=== PATIENT | male | born 1955 | race Caucasian/White ===

== ENCOUNTER → 2018-07-12 08:02 | Outpatient (CLI) | payer OTHER, SELFPAY ==
[2016-02-03 11:51] VITALS: BMI 27.0
[2018-07-12 08:35] LABS: Bacteria 0 SEEN /hpf (None Seen); Mucous, Urine 0 SEEN /hpf (<or=2+); Red Blood Cells-Urine 0 SEEN /hpf (0-5); Squamous Epithelial Cells - UA 0 SEEN /hpf (0-5); White Blood Cells 0 SEEN /hpf (0-5)
[2018-07-12 09:03] LABS: Hematocrit 43.6 % (40-54); Hemoglobin 14.8 g/dl (13.0-16.5); Mean Corp Hgb Conc 33.9 g/gl (32-36); Mean Corpuscular Volume 91.2 fL (80-94); Mean Platelet Vol. 9.1 fl (6.2-12.0); Platelet Count 215 K/mm3 (150-450); RBC Distribution Width CV 13.2 % (11.6-14.6); RBC Distribution Width SD 43.9 fl (35.1-43.9); Red Blood Count 4.78 M/mm3 (4.6-6.2); White Blood Count 6.5 K/mm3 (4.4-11.0)
[2018-07-12 09:05] LABS: Scan Indicated on CBC? Y/N NO
[2018-07-12 09:25] LABS: AST(SGOT) 20 U/L (15-37); Alanine Aminotransfer ALT/SGPT 36 U/L (16-61); Albumin, Serum 3.6 g/dL (3.2-5.0); Alkaline Phosphatase 96 U/L (45-117); Anion Gap 8 (5-15); BUN 16 mg/dL (7-18); BUN/Creat Ratio 18.8 RATIO (10-20); Bilirubin, Direct 0.08 mg/dL (0.00-0.30); Calcium,Total 8.4 mg/dL (8.5-10.1); Chloride 109 mmol/L (98-107); Cholesterol 213 mg/dL (200); Creatinine, Serum 0.85 mg/dL (0.70-1.30); EST Glomerular Filtration Rate 97 mL/min (>60); Est Glom Filt Rate - Afr Amer 118 mL/min (>60); Globulin 3.9 g/dL (2.2-4.2); Glucose 131 mg/dL (74-106); High Density Lipoprotein 35 mg/dL; Potassium 4.1 mmol/L (3.5-5.1); Protein, Total 7.5 g/dL (6.4-8.2); Sodium Level 139 mmol/L (136-145); Triglycerides 211 mg/dL; Very Low Density Lipoprotein 42 mg/dL (5-40)
[2018-07-12 11:55] LABS: Color, Urine Yellow (Yellow); Glucose, Dipstick Normal (Normal); Ketone-Dipstick 5 mg/dl (Negative); Leukocyte Esterase-Dipstick Negative /ul (Negative); Nitrite-Dipstick Negative (Negative); Occult Blood-Urine Negative /ul (Negative); Protein-Dipstick 30 mg/dl (Negative); Urine Bilirubin Dipstick Negative (Negative); Urine Clarity Clear (Clear); Urine Urobilinogen Normal (Normal)
[2018-07-12 13:26] LABS: Chlamydia Trachomatis by PCR Negative (Negative); Probe Check PASS; Sample Adequacy Control PASS; Specimen Processing Control PASS; Trichomonas Vag DNA by PCR Negative (Negative)
[2018-07-14 12:06] LABS: Absolute CD4 Helper 502 /uL (359-1519); Basophils (Absolute) 0.1 x10E3/uL (0.0-0.2); Eosinophils 6 % (Not Estab.); Eosinophils (Absolute) 0.4 x10E3/uL (0.0-0.4); HEPATITIS B SURFACE AG Negative (Negative); Hematocrit 43.2 % (37.5-51.0); Hemoglobin 14.6 g/dL (13.0-17.7); Immature Granulocytes 0 % (Not Estab.); Immature Granulocytes Absolute 0 x10E3/uL (0.0-0.1); Lymphs 26 % (Not Estab.); Lymphs (Absolute) 1.8 x10E3/uL (0.7-3.1); MCH 30.7 pg (26.6-33.0); MCHC 33.8 g/dL (31.5-35.7); MCV 91 fL (79-97); Monocytes 9 % (Not Estab.); Monocytes (Absolute) 0.6 x10E3/uL (0.1-0.9); Neutrophils 58 % (Not Estab.); Percent % CD4 Pos. Lymph. 27.9 % (30.8-58.5); Platelets 216 x10E3/uL (150-379); RBC Count 4.76 x10E6/uL (4.14-5.80); RDW 14.1 % (12.3-15.4); WBC Count 6.8 x10E3/uL (3.4-10.8)
[2018-07-14 14:34] LABS: Hep C Antibodies <0.1 s/co ratio (0.0-0.9)
[2018-07-14 14:41] LABS: Hepatitis A AB, Total Positive (Negative)
[2018-07-16 12:06] LABS: HIV-1 RNA by PCR, Quant. < 20 copies/mL (.)
[2018-07-18 02:32] LABS: Rapid Plasmin Reagin (RPR) NONREACTIVE (NONREACTIVE)
--- OUTSIDE RECORDS SUMMARY | 2018-09-05 18:56 | XMS RPT_ITS | Clinical Summary ---
:1955 Author Organization [facility] Address [facility] [place] [address] Phone Care Team Providers Name Role Phone Signs Denita KRUGER Unavailable [ ] Conditions or Problems Problem Name Problem Onset Status Entry Provider Comment Standard Annotate Code Date Date Description Back pain, 945099988 Active Denita Herrera Backache chronic (SNOMED 04/23 04/[address]) GI bleed 87916681 Active Denita Herrera Gastrointestinal (SNOMED 04/23 04/[address]) Postherpetic 6416478 Active Denita Herrera Postherpetic neuralgia (SNOMED 04/25 04/[address]) Prediabetes 3306982 Active Denita Herrera Impaired glucose (SNOMED 04/25 04/[address]) Tobacco use 88777380 Active Denita Herrera Tobacco disorder (SNOMED 04/25 04/[address]) syndrome HIV infection 04853814 Active Denita Herrera Human (SNOMED 04/25 04/[address]) virus infection Human B20 Active Jose Oro 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-CM 04/25 04/25 Wm [place] immunodeficiency ncy virus ) virus [HIV] [HIV] disease disease Medications Medication Instructions Start Stop Generic Name NDC Provider Date Date STRIBILD One tablet by [id number] Denita Herrera [phone] MG mouth daily 09/25 TRICIT-TENOF Signs TABS FLONASE ALLERGY 1 spray PRN FLUTICASONE [id number] Denita Herrera RELIEF 50 MCG/ACT PROPIONATE Signs SUSP TYLENOL EXTRA One tablet by 2016/0 ACETAMINOPHEN [id number] Verena STRENGTH 500 MG TABS mouth three 04/23 Mya Wright times daily CIVIL ENGINEERING PROFESSOR as needed ATRIPLA 600-200-300 One tablet by EFAVIRENZ-EMTRICIT [id number] Mee E MG TABS mouth daily AB-TENOFOVIR Schloneger IBUPROFEN 400 MG 1 every 6 IBUPROFEN 76444737471 Mee E TABS hours PRN Schloneger HYDROCHLOROTHIAZIDE One tablet by HYDROCHLOROTHIAZID [id number] Mee E 12.5 MG TABS mouth daily E Schloneger LISINOPRIL 20 MG One tablet by LISINOPRIL 78349574757 Mee E TABS mouth daily Schloneger FLONASE ALLERGY 1 spray PRN FLUTICASONE 14948658674 Mee E RELIEF 50 MCG/ACT PROPIONATE Schloneger SUSP ATRIPLA 600-200-300 One tablet by EFAVIRENZ-EMTRICIT 77082132184 Funmi L MG TABS mouth daily AB-TENOFOVIR Jak CIVIL ENGINEERING PROFESSOR FLONASE ALLERGY 1 spray PRN FLUTICASONE 50303802898 Funmi L RELIEF 50 MCG/ACT PROPIONATE Jak CIVIL ENGINEERING PROFESSOR SUSP ATRIPLA 600-200-300 One tablet by EFAVIRENZ-EMTRICIT 39712757247 Denita J MG TABS mouth daily AB-TENOFOVIR Signs MD ATRIPLA 600-200-300 One tablet by 2015/ EFAVIRENZ-EMTRICIT 22520410205 Funmi L MG TABS mouth daily 10/23 AB-TENOFOVIR Jak CIVIL ENGINEERING PROFESSOR HYDROCHLOROTHIAZIDE One tablet by HYDROCHLOROTHIAZID 95883871019 Funmi L 12.5 MG TABS mouth daily E Jak CIVIL ENGINEERING PROFESSOR HYDROCHLOROTHIAZIDE One tablet by 2015/ HYDROCHLOROTHIAZID 50369635391 Verena 12.5 MG TABS mouth daily 04/23 E Mya Wright CIVIL ENGINEERING PROFESSOR IBUPROFEN 400 MG 1 every 6 IBUPROFEN 81063571385 Funmi L TABS hours PRN Jak CIVIL ENGINEERING PROFESSOR IBUPROFEN 400 MG 1 every 6 2016/ IBUPROFEN 59965297820 Verena TABS hours PRN 04/23 Mya Wright CIVIL ENGINEERING PROFESSOR RIAZ ALLERGY TABS PRN FEXOFENADINE HCL 20993260789 Mee E TABS Schloneger LISINOPRIL 20 MG One tablet by LISINOPRIL 72148216171 Funmi L TABS mouth daily Jak CIVIL ENGINEERING PROFESSOR Medications Administered No information available. Allergies, Adverse Reactions, Alerts Allergy Name Reaction Description Start Date Severity Status Provider DAPSONE Critical Active Funmi Benedict CIVIL ENGINEERING PROFESSOR BACTRIM Critical Active Funmi L Jak CIVIL ENGINEERING PROFESSOR Results Date Name Value Unit Range Flag Description Office Visit: Stable CD4 % 23, VL pndg.Change to stribild due to Nightmres SMOK ADVICE yes Smoking cessation education (procedure) Office Visit: HIV w/UD VL <20, CD4 up to 491, quit tobacco, recent GIB MEDS REVIEW Done Documentation of current medications (procedure) ORALTOBACUSE Never Tobacco smoking status NHIS SMOK STATUS Former smoker Tobacco use [facility] Lab Report: Vitamin D,25 Hydroxy VIT D 25-OH 23.6 ng/mL vitamin D 25-hydroxy, serum Replaced Document: (P) Hepatitis C Antibodies HEP C AB <0.1 0.0-0.9 hepatitis C antibody, serum Replaced Document: (P) CD4, T Lymph [place] Count CD4 % 28.2 % 30.8-58.5 L T-helper cells (CD4) as percent of blood lymphocytes ABSOLUTECD4 423 /UL {Cells}/uL 359-1519 Absolute CD4 LAB COMMENTS Test not performed . lab comments NUCLEAT RBCS Test not performed . nucleated red blood cells GRANULO CNT 0 X10E3/UL 10*3/mm3 0.0-0.1 granulocyte count, absolute, blood ABSOLUTE BAS 0 X10E3/UL 10*3/uL 0.0-0.2 Absolute Basophils EOSINPABSMAN 0.4 X10E3/UL {Cells}/uL 0.0-0.4 eosinophils, absolute, manual ABSOLUTE MON 0.4 X10E3/UL 10*3/uL 0.1-0.9 Absolute Monocytes LYMPHOCYTABS 1.5 X10E3/UL 10*3/uL 0.7-3.1 lymphocytes, absolute ABS NEUTROPH 4.0 X10E3/UL 10*3/uL 1.4-7.0 Absolute Neutrophils WBC TOTAL 6.5 3.4-10.8 WBC Total Count Lab Report: Rapid Plasmin Reagin (RPR) RPR NONREACTIVE NONREACTIVE rapid plasma reagin antibody, serum Lab Report: HIV Viral Load Quant [id number] Test not performed . HIV-1 RNA (log 10) HIV1 RNA PCR < 20 . HIV-1 RNA by PCR, serum Lab Report: CBC W/Diff, Automated LYMPHCT AUTO 1.55 X10 3/UL 10*3/mm3 0.83-4.51 lymphocyte count, blood, automated ANC 3.7 X10 3/UL 10*3/mm3 2.0-7.7 neutrophil count, blood IMM GRANU % 0.500 % 0.0-0.9 immature granulocytes, percentage of total cells, blood BASOPHIL % 0.7 % 0-1 basophils as percent of blood leukocytes EOSINOPHIL % 5.9 % 0-5 H eosinophils as percent of blood leukocytes MONOCYTE % 7.2 % 0-10 monocytes as percent of blood leukocytes LYMPHS % 25.2 % 19-41 lymphocytes as percent of blood leukocytes PMN % 60.5 % 47-70 neutrophils as percent of blood leukocytes MPV 9.1 fL 6.2-12.0 mean platelet volume PLATELETS 240 10*3/mm3 150-450 platelet count RDW-SD 42.9 fL 35.1-43.9 red blood cell distribution width, size density RDW 13.1 % 11.6-14.6 red blood cell distribution width MCHC RBC 33.7 G/GL g/dL 32-36 mean corpuscular hemoglobin concentration, RBC MCH 30.2 pg 27.0-32.0 mean corpuscular hemoglobin, RBC MCV 89.7 fL 80-94 mean corpuscular volume, RBC HCT 43.6 % 40-54 hematocrit, blood HGB 14.7 g/dL 13.0-16.5 hemoglobin, blood RBC M/UL 4.86 10*6/uL 4.6-6.2 red blood count WBC BLOOD 6.1 10*9/L 4.4-11.0 leukocyte (white blood cells) count, blood Lab Report: Hemoglobin A1c HGBA1C 5.8 % 4.2-6.3 Hemoglobin A1c/Hemoglobin.total in Blood Lab Report: Comprehensive Metabolic Profil ANION GAP 9 5-15 anion gap, serum CO2 24.0 mmol/L 21.0-32.0 carbon dioxide, venous blood CHLORIDE 106 mmol/L 98-107 chloride, serum POTASSIUM 4.1 mmol/L 3.5-5.1 potassium, serum SODIUM 139 mmol/L 136-145 sodium, serum BILI TOTAL 0.40 mg/dL 0.20-1.00 bilirubin, serum, total SGPT (ALT) 36 U/L 12-78 alanine aminotransferase (SGPT), serum ALK PHOS 120 U/L 45-117 H alkaline phosphatase, serum SGOT (AST) 16 U/L 15-37 aspartate aminotransferase (SGOT), serum CALCIUM 8.6 mg/dL 8.5-10.1 calcium, serum A/G RATIO 1.0 RATIO 0.9-2.4 albumin/globulin ratio, serum GLOBULIN TOT 3.8 g/dL 2.3-3.5 H globulins, serum, total ALBUMIN 3.7 g/dL 3.4-5.0 albumin, serum PROTEIN, TOT 7.5 g/dL 6.4-8.2 protein, total, serum BUN/CREAT 12.4 RATIO 10-20 urea nitrogen/creatinine ratio, serum GFRAA 126 mL/min >60 Glomerular Filtration rate GFR EST 104 mL/min >60 estimated glomerular filtration rate CREATININE 0.81 mg/dL 0.70-1.30 creatinine, serum BUN 10 mg/dL 7-18 urea nitrogen, blood GLUCOSE SER 104 mg/dL 70-110 blood glucose Lab Report: Thyroid Stim Hormone (TSH) TSH 0.59 u[iU]/mL 0.358-3.74 thyroid stimulating hormone, serum Plan of Care Type Date Detail Appointment 01:30 PM Denita Almendarez MD, [address], [address], [place], [address], Pending order *CD4 - T Cells, Absolute CD4 Count Pending order *HIVVL HIV-1, Viral Load Determined by PCR Pending order *CMP Complete Metabolic Panel Pending order *CBC with Differential Pending order *TSH Pending order *HgA1C Pending order *RPR Pending order *CD4 - T Cells, Absolute CD4 Count Pending order *HIVVL HIV-1, Viral Load Determined by PCR Pending order *CMP Complete Metabolic Panel Pending order *CBC with Differential Pending order *TSH Pending order *HgA1C Pending order *RPR Pending order *Vitamin D (Calciferol) Pending order *Hep C Antibody, Total Pending order CBC with Differential Pending order SGPT (ALT) Pending order SGOT (AST) Pending order GGT Pending order Creatinine Pending order Lipid Profile Pending order Toxoplasma IgG Pending order Hep C AB Pending order HBSAG Pending order Testosterone-Free Pending order Testosterone-Total Pending order *CBC with Differential Pending order *CD4 - T Cells, Absolute CD4 Count Pending order *HIVVL HIV-1, Viral Load Determined by PCR Pending order *CD4 - T Cells, Absolute CD4 Count Pending order *HIVVL HIV-1, Viral Load Determined by PCR Pending order *CMP Complete Metabolic Panel Pending order *CBC with Differential Pending order *TSH Pending order *HgA1C Pending order *RPR Pending order *HEBSAB - Hep B Surface Antibody 6395 Pending order *HEAM Hepatitis A Antibdy - IGM Pending order *HEAT Hepatitis A Antibdy - IGG/IGM Pending order *HEBSAG - Hep B Surface Antigen 6510 Pending order *Hep C Antibody, Total Pending order *Lipid Profile Pending order *Vitamin D (Calciferol) Pending order *CBC with Differential Pending order *HIVVL HIV-1, Viral Load Determined by PCR Pending order *TSH Pending order *Vitamin D (Calciferol) Pending order *CMP Complete Metabolic Panel Pending order *CD4 - T Cells, Absolute CD4 Count Patient education HIV%20INFECTION Procedures Code Procedure Name Date Entry Date 0786-1 *CMP Complete Metabolic Panel 3016-3 *TSH 4548-4 *HgA1C 0184-1 *CBC with Differential 14236-0 *HIVVL HIV-1, Viral Load Determined by PCR 20314-7 *RPR 0363-1 *Hep C Antibody, Total 0786-1 *CMP Complete Metabolic Panel 82032-9 *Vitamin D (Calciferol) 3016-3 *TSH 4548-4 *HgA1C 0184-1 *CBC with Differential 0530-1 *CD4 - T Cells, Absolute CD4 Count V9902i,S131020 CBC with Differential [id number] SGPT (ALT) O65166M,L556590 SGOT (AST) CPT-53669 GGT X57244I,[id number] Creatinine Q968T,Y002120 Lipid Profile [id number] Toxoplasma IgG CPT-50861 Hep C AB CPT-34013 HBSAG X151944, W78202 Testosterone-Free Q873X,C465572 Testosterone-Total CPT-27767 Pneumococcal (Adult) CPT-21388 Influenza (3 yrs+) CPT-92858 TD Booster CPT-51046 PPD 0184-1 *CBC with Differential 0530-1 *CD4 - T Cells, Absolute CD4 Count 73965-7 *HIVVL HIV-1, Viral Load Determined by PCR 00155-7 *HIVVL HIV-1, Viral Load Determined by PCR 0184-1 *CBC with Differential 3016-3 *TSH 27600-9 *Vitamin D (Calciferol) 0786-1 *CMP Complete Metabolic Panel 0530-1 *CD4 - T Cells, Absolute CD4 Count Vital Signs Date Name Value Unit Description BMI (Body Mass Index) 28.37 kg/m2 Body Mass Index [Ratio] Body Temperature 98.5 [degF] temperature E&M BP Diastolic 75 mm[Hg] blood pressure, diastolic - 8462-4 BP Systolic 120 mm[Hg] blood pressure, systolic - 8480-6 Heart Rate 86 /min pulse rate E&M - 8867-4 O2 % BldC Oximetry 96 % oxygen saturation, oximetry Respiratory Rate 18 /min respiratory rate E&M - 9279-1 Weight Measured 221 [lb_av] weight E&M - 3141-9 Height 74 [in_us] height E&M - 8302-2
--- OUTSIDE RECORDS SUMMARY | 2018-09-05 18:56 | XMS RPT_ITS | Clinical Summary ---
:1955 Author Organization [facility] Address [address] [place] [address] Phone Care Team Providers Name Role Phone Signs Denita KRUGER Unavailable [ ] Conditions or Problems Problem Name Problem Onset Status Entry Provider Comment Standard Annotate Code Date Date Description Back pain, 165962555 Active Denita Herrera Backache chronic (SNOMED 04/23 04/[address]) GI bleed 98147144 Active Denita Herrera Gastrointestinal (SNOMED 04/23 04/[address]) Postherpetic 2987299 Active Denita Herrera Postherpetic neuralgia (SNOMED 04/25 04/[address]) Prediabetes 3179424 Active Denita Herrera Impaired glucose (SNOMED 04/25 04/[address]) Tobacco use 30422646 Active Denita Herrera Tobacco disorder (SNOMED 04/25 04/[address]) syndrome HIV infection 18517582 Active Denita Herrera Human (SNOMED 04/25 04/[address]) virus infection Human B20 Active Jose Oro 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/25 04/25 Wm [place] immunodeficiency ncy virus ) virus [HIV] [HIV] disease disease Medications Medication Instructions Start Stop Generic Name NDC Provider Date Date STRIBILD One tablet by [id number] Denita Herrera [phone] MG mouth daily 09/25 TRICIT-TENOF Signs TABS FLONASE ALLERGY 1 spray PRN FLUTICASONE 28300250330 Denita Herrera RELIEF 50 MCG/ACT PROPIONATE Signs SUSP TYLENOL EXTRA One tablet by 2016/0 ACETAMINOPHEN 14948754005 Verena STRENGTH 500 MG TABS mouth three 04/23 Mya Wright times daily TREE TOPPER as needed ATRIPLA 600-200-300 One tablet by EFAVIRENZ-EMTRICIT 40388469689 Mee E MG TABS mouth daily AB-TENOFOVIR Schloneger IBUPROFEN 400 MG 1 every 6 IBUPROFEN 27216321577 Mee E TABS hours PRN Schloneger HYDROCHLOROTHIAZIDE One tablet by HYDROCHLOROTHIAZID 24517381335 Mee E 12.5 MG TABS mouth daily E Schloneger LISINOPRIL 20 MG One tablet by LISINOPRIL 65867986050 Mee E TABS mouth daily Schloneger FLONASE ALLERGY 1 spray PRN FLUTICASONE 96539493213 Mee E RELIEF 50 MCG/ACT PROPIONATE Schloneger SUSP ATRIPLA 600-200-300 One tablet by EFAVIRENZ-EMTRICIT 24579553362 Funmi L MG TABS mouth daily AB-TENOFOVIR Jak TREE TOPPER FLONASE ALLERGY 1 spray PRN FLUTICASONE 61912063337 Funmi L RELIEF 50 MCG/ACT PROPIONATE Jak TREE TOPPER SUSP ATRIPLA 600-200-300 One tablet by EFAVIRENZ-EMTRICIT 72401109423 Denita J MG TABS mouth daily AB-TENOFOVIR Signs MD ATRIPLA 600-200-300 One tablet by 2015/ EFAVIRENZ-EMTRICIT 46027176841 Funmi L MG TABS mouth daily 10/23 AB-TENOFOVIR Jak TREE TOPPER HYDROCHLOROTHIAZIDE One tablet by HYDROCHLOROTHIAZID 90877860901 Funmi L 12.5 MG TABS mouth daily E Jak TREE TOPPER HYDROCHLOROTHIAZIDE One tablet by 2015/ HYDROCHLOROTHIAZID 70564551944 Verena 12.5 MG TABS mouth daily 04/23 E Mya Wright TREE TOPPER IBUPROFEN 400 MG 1 every 6 IBUPROFEN 81768028872 Funmi L TABS hours PRN Jak TREE TOPPER IBUPROFEN 400 MG 1 every 6 2016/ IBUPROFEN 31179597282 Verena TABS hours PRN 04/23 Mya Wright TREE TOPPER RIAZ ALLERGY TABS PRN FEXOFENADINE HCL 77450480218 Mee E TABS Schloneger LISINOPRIL 20 MG One tablet by LISINOPRIL 50621666159 Funmi L TABS mouth daily Jak TREE TOPPER Medications Administered No information available. Allergies, Adverse Reactions, Alerts Allergy Name Reaction Description Start Date Severity Status Provider DAPSONE Critical Active Funmi Benedict TREE TOPPER BACTRIM Critical Active Funmi L Jak TREE TOPPER Results Date Name Value Unit Range Flag Description Office Visit: Stable CD4 % 23, VL pndg.Change to stribild due to Nightmres SMOK ADVICE yes Smoking cessation education (procedure) Office Visit: HIV w/UD VL <20, CD4 up to 491, quit tobacco, recent GIB MEDS REVIEW Done Documentation of current medications (procedure) ORALTOBACUSE Never Tobacco smoking status NHIS SMOK STATUS Former smoker Tobacco use [facility] Lab Report: Vitamin D,25 Hydroxy VIT D 25-OH 23.6 ng/mL vitamin D 25-hydroxy, serum Replaced Document: (P) Hepatitis C Antibodies HEP C AB <0.1 0.0-0.9 hepatitis C antibody, serum Lab Report: Rapid Plasmin Reagin (RPR) RPR NONREACTIVE NONREACTIVE rapid plasma reagin antibody, serum Lab Report: CBC W/Diff, Automated LYMPHCT AUTO 1.55 X10 3/UL 10*3/mm3 0.83-4.51 lymphocyte count, blood, automated ANC 3.7 X10 3/UL 10*3/mm3 2.0-7.7 neutrophil count, blood MPV 9.1 fL 6.2-12.0 mean platelet volume RDW-SD 42.9 fL 35.1-43.9 red blood cell distribution width, size density WBC BLOOD 6.1 10*9/L 4.4-11.0 leukocyte (white [...] 0.59 u[iU]/mL 0.358-3.74 thyroid stimulating hormone, serum Lab Report: CD4, T Lymph [place] Count CD4 % 27.2 % 30.8-58.5 L T-helper cells (CD4) as percent of blood lymphocytes ABSOLUTECD4 490 /UL {Cells}/uL 359-1519 Absolute CD4 LAB COMMENTS Test not performed . lab comments NUCLEAT RBCS Test not performed . nucleated red blood cells GRANULO CNT 0 X10E3/UL 10*3/mm3 0.0-0.1 granulocyte count, absolute, blood IMM GRANU % 0 % . immature granulocytes, percentage of total cells, blood ABSOLUTE BAS 0 X10E3/UL 10*3/uL 0.0-0.2 Absolute Basophils EOSINPABSMAN 0.3 X10E3/UL {Cells}/uL 0.0-0.4 eosinophils, absolute, manual ABSOLUTE MON 0.4 X10E3/UL 10*3/uL 0.1-0.9 Absolute Monocytes LYMPHOCYTABS 1.8 X10E3/UL 10*3/uL 0.7-3.1 lymphocytes, absolute ABS NEUTROPH 3.9 X10E3/UL 10*3/uL 1.4-7.0 Absolute Neutrophils BASOPHIL % 1 % . basophils as percent of blood leukocytes EOSINOPHIL % 5 % . eosinophils as percent of blood leukocytes MONOCYTE % 7 % . monocytes as percent of blood leukocytes LYMPHS % 27 % . lymphocytes as percent of blood leukocytes PMN % 60 % . neutrophils as percent of blood leukocytes PLATELETS 220 X10E3/UL 10*3/mm3 150-379 platelet count RDW 14.4 % 12.3-15.4 red blood cell distribution width MCHC RBC 33.3 g/dL 31.5-35.7 mean corpuscular hemoglobin concentration, RBC MCH 29.7 pg 26.6-33.0 mean corpuscular hemoglobin, RBC MCV 89 fL 79-97 mean corpuscular volume, RBC HCT 43.3 % 37.5-51.0 hematocrit, blood HGB 14.4 g/dL 12.6-17.7 hemoglobin, blood RBC M/UL 4.85 X10E6/UL 10*6/uL 4.14-5.80 red blood count WBC TOTAL 6.5 3.4-10.8 WBC Total Count Lab Report: HIV Viral Load Quant [id number] Test not performed . HIV-1 RNA (log 10) HIV1 RNA PCR < 20 . HIV-1 RNA by PCR, serum Plan of Care Type Date Detail Appointment 01:30 PM Denita Almendarez MD, [address], [place], [address], Pending order *CD4 - T Cells, Absolute [...] *CD4 - T Cells, Absolute CD4 Count 62771-3 *HIVVL HIV-1, Viral Load Determined by PCR 83842-8 *HIVVL HIV-1, Viral Load Determined by PCR 44417-2 *RPR 0363-1 *Hep C Antibody, Total 0786-1 *CMP Complete Metabolic Panel 20633-4 *Vitamin D (Calciferol) 3016-3 *TSH 4548-4 *HgA1C 0184-1 *CBC with Differential 0530-1 *CD4 - T Cells, Absolute CD4 Count [id number],G141079 CBC with Differential [id number] SGPT (ALT) [id number],[id number] SGOT (AST) CPT-31388 GGT [id number],[id number] Creatinine Q968T,P760523 Lipid Profile G035757 Toxoplasma IgG CPT-13449 Hep C AB CPT-64926 HBSAG H938001, T23164 Testosterone-Free Q873X,K895030 Testosterone-Total CPT-98974 Pneumococcal (Adult) CPT-73513 Influenza (3 yrs+) CPT-98616 TD Booster CPT-25696 PPD 0184-1 *CBC with Differential 0530-1 *CD4 - T Cells, Absolute CD4 Count 49929-3 *HIVVL HIV-1, Viral Load Determined by PCR 75266-0 *HIVVL HIV-1, Viral Load Determined by PCR 0184-1 *CBC with Differential 3016-3 *TSH 89424-1 *Vitamin D (Calciferol) 0786-1 *CMP Complete Metabolic [...]
--- OUTSIDE RECORDS SUMMARY | 2018-09-05 18:56 | XMS RPT_ITS | Clinical Summary ---
:1955 Author Organization [facility] Address [facility] [place] [address] Phone Care Team Providers Name Role Phone Signs Denita KRUGER Unavailable [ ] Conditions or Problems Problem Name Problem Onset Status Entry Provider Comment Standard Annotate Code Date Date Description Tobacco use 54897442 Resolved Denita Herrera Tobacco disorder (SNOMED 04/25 04/[address]) syndrome Prediabetes 8626991 Inactive Denita Herrera Impaired glucose (SNOMED 04/25 04/[address]) Back pain, 129726801 Active Denita Herrera Backache chronic (SNOMED 04/23 04/[address]) GI bleed 98053418 Active Denita Herrera Gastrointestinal (SNOMED 04/23 04/[address]) Postherpetic 3835625 Active Denita Herrera Postherpetic neuralgia (SNOMED 04/25 04/[address]) Prediabetes 3142346 Inactive Denita Herrera Impaired glucose (SNOMED 04/25 04/[address]) Tobacco use 18940734 Removed Denita Herrera Tobacco disorder (SNOMED 04/25 04/[address]) syndrome HIV 43629319 Active Dneita J Human infection (SNOMED 04/25 04/[address]) virus infection Human B20 Active Jose Oro 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 04/25 04/25 Wm JONATHON immunodeficiency ency virus ) virus [HIV] [HIV] disease disease Medications Medication Instructions Start Stop Generic Name NDC Provider Date Date GENVOYA 1 qd [id number] Denita J [phone] MG 01/21 ICIT-TENOFAF Signs TABS STRIBILD One tablet by [id number]-[id number] [id number] Denita J [phone] MG mouth daily 09/25 TRICIT-TENOF Signs TABS FLONASE ALLERGY 1 spray PRN FLUTICASONE 09685480800 Denita J RELIEF 50 MCG/ACT PROPIONATE Signs SUSP TYLENOL EXTRA One tablet by ACETAMINOPHEN 79569259415 Verena STRENGTH 500 MG TABS mouth three 04/23 Mya Wright times daily NET C DEVELOPER as needed ATRIPLA 600-200-300 One tablet by EFAVIRENZ-EMTRICIT 68918659968 Mee E MG TABS mouth daily AB-TENOFOVIR Schloneger IBUPROFEN 400 MG 1 every 6 IBUPROFEN 47507094836 Mee E TABS hours PRN Schloneger HYDROCHLOROTHIAZIDE One tablet by HYDROCHLOROTHIAZID 73128484243 Mee E 12.5 MG TABS mouth daily E Schloneger LISINOPRIL 20 MG One tablet by LISINOPRIL 84936715545 Mee E TABS mouth daily Schloneger FLONASE ALLERGY 1 spray PRN FLUTICASONE 67641585514 Mee Cage RELIEF 50 MCG/ACT PROPIONATE Schloneger SUSP ATRIPLA 600-200-300 One tablet by EFAVIRENZ-EMTRICIT 10393013234 Funmi L MG TABS mouth daily AB-TENOFOVIR Jak NET C DEVELOPER FLONASE ALLERGY 1 spray PRN FLUTICASONE 82740795592 Funmi L RELIEF 50 MCG/ACT PROPIONATE Jak NET C DEVELOPER SUSP ATRIPLA 600-200-300 One tablet by EFAVIRENZ-EMTRICIT 31696356035 Denita J MG TABS mouth daily AB-TENOFOVIR Signs MD ATRIPLA 600-200-300 One tablet by 2015/ EFAVIRENZ-EMTRICIT 54848767090 Funmi L MG TABS mouth daily 10/23 AB-TENOFOVIR Jak NET C DEVELOPER HYDROCHLOROTHIAZIDE One tablet by HYDROCHLOROTHIAZID 80835339051 Funmi L 12.5 MG TABS mouth daily E Jak NET C DEVELOPER HYDROCHLOROTHIAZIDE One tablet by 2015/ HYDROCHLOROTHIAZID 37552730004 Verena 12.5 MG TABS mouth daily 04/23 E Mya Wright NET C DEVELOPER IBUPROFEN 400 MG 1 every 6 IBUPROFEN 35206355454 Funmi L TABS hours PRN Jak NET C DEVELOPER IBUPROFEN 400 MG 1 every 6 2015/ IBUPROFEN 89145136358 Verena TABS hours PRN 04/23 Mya Wright NET C DEVELOPER RIAZ ALLERGY TABS PRN FEXOFENADINE HCL 51714199789 Mee E TABS Schloneger LISINOPRIL 20 MG One tablet by LISINOPRIL 41388395531 Funmi L TABS mouth daily Jak NET C DEVELOPER Medications Administered No information available. Allergies, Adverse Reactions, Alerts Allergy Name Reaction Description Start Date Severity Status Provider DAPSONE Critical Active Funmi L Jak NET C DEVELOPER BACTRIM Critical Active Funmi L Jak NET C DEVELOPER Results Date Name Value Unit Range Flag Description Office Visit: Stable CD4 % 23, VL pndg.Change to stribild due to Nightmres SMOK ADVICE yes Smoking cessation education (procedure) Office Visit: HIV w/UD VL <20, CD4 up to 491, quit tobacco, recent GIB ORALTOBACUSE Never Tobacco smoking status NHIS SMOK STATUS Former smoker Tobacco use [facility] Lab Report: Vitamin D,25 Hydroxy VIT D 25-OH 23.6 ng/mL vitamin D 25-hydroxy, serum Replaced Document: (P) Hepatitis C Antibodies HEP C AB <0.1 0.0-0.9 hepatitis C antibody, serum Lab Report: CBC W/Diff, Automated [...] hormone, serum Lab Report: CD4, T Lymph [place] Count CD4 % 27.2 % 30.8-58.5 L [...] Count Lab Report: HIV Viral Load Quant [id number] Test not performed . HIV-1 RNA (log 10) HIV1 RNA PCR < 20 . HIV-1 RNA by PCR, serum Lab Report: Rapid Plasmin Reagin (RPR) RPR NONREACTIVE NONREACTIVE rapid plasma reagin antibody, serum Office Visit: Lucionikolas ITZEL VL, CD4 490 (27%) HEP B AG OB vaccine INITIAL OB LABS HEP B SURFACE Ag TOXOPLAS IGG pos toxoplasma gondii antibody, IgG FALLRSKASSES No Fall risk assessment MEDS REVIEW Done Documentation of current medications (procedure) Plan of Care Type Date Detail Pending order *CBC with Differential Pending order *CD4 - T Cells, Absolute CD4 Count Pending order *CMP Complete Metabolic Panel Pending order *Hep C Viral Load Pending order *HgA1C Pending order *HIVVL HIV-1, Viral Load Determined by PCR Pending order *Lipid Profile Pending order *CD4 - T Cells, Absolute [...] *CD4 - T Cells, Absolute CD4 Count 60445-9 *HIVVL HIV-1, Viral Load Determined by PCR 36508-5 *RPR 88618-7 *HIVVL HIV-1, Viral Load Determined by PCR 65687-2 *RPR 0363-1 *Hep C Antibody, Total 0786-1 *[facility] Complete Metabolic Panel 09527-3 *Vitamin D (Calciferol) 3016-3 *TSH 4548-4 *HgA1C 0184-1 *CBC with Differential 0530-1 *CD4 - T Cells, Absolute CD4 Count [id number],[id number] CBC with Differential [id number],C285761 SGPT (ALT) O55595Y,[id number] SGOT (AST) CPT-08560 GGT V42368M,Z160706 Creatinine Q968T,Y368808 Lipid Profile [id number] Toxoplasma IgG CPT-93909 Hep C AB CPT-26720 HBSAG F762508, L08788 Testosterone-Free Q873X,G586849 Testosterone-Total CPT-86790 Pneumococcal (Adult) CPT-09718 Influenza (3 yrs+) CPT-17258 TD Booster CPT-37495 PPD 0184-1 *CBC with Differential 0530-1 *CD4 - T Cells, Absolute CD4 Count 93801-6 *HIVVL HIV-1, Viral Load Determined by PCR 85504-4 *HIVVL HIV-1, Viral Load Determined by PCR 0184-1 *CBC with Differential 3016-3 *TSH 26030-1 *Vitamin D (Calciferol) 0786-1 *CMP Complete Metabolic Panel 0530-1 *CD4 - T Cells, Absolute CD4 Count Vital Signs Date Name Value Unit Description BMI (Body Mass Index) 29.71 kg/m2 Body Mass Index [Ratio] BP Diastolic 73 mm[Hg] blood pressure, diastolic - 8462-4 BP Systolic 121 mm[Hg] blood pressure, systolic - 8480-6 Heart Rate 83 /min pulse rate E&M - 8867-4 O2 % BldC Oximetry 98 % oxygen saturation, oximetry Weight Measured 231.4 [lb_av] weight E&M - 3141-9 Body Temperature 98.5 [degF] temperature E&M Respiratory Rate 18 /min respiratory rate E&M - 9279-1 Height 74 [in_us] height E&M - 8302-2
--- OUTSIDE RECORDS SUMMARY | 2018-09-05 18:56 | XMS RPT_ITS | Clinical Summary ---
:1955 Author Organization [facility] Address [address] [place] [phone] Phone Care Team Providers Name Role Phone Signs Denita KRUGER Unavailable [ ] Conditions or Problems Problem Name Problem Onset Status Entry Provider Comment Standard Annotate Code Date Date Description Back pain, 228679628 Active Denita Herrera Backache chronic (SNOMED 04/23 04/[address]) GI bleed 66945302 Active Denita Herrera Gastrointestinal (SNOMED 04/23 04/[address]) Postherpetic 2563602 Active Denita Herrera Postherpetic neuralgia (SNOMED 04/25 04/[address]) Prediabetes 7288009 Active Denita Herrera Impaired glucose (SNOMED 04/25 04/[address]) Tobacco use 29856933 Active Denita Herrera Tobacco disorder (SNOMED 04/25 04/[address]) syndrome HIV infection 17121690 Active Denita Herrera Human (SNOMED 04/25 04/[address]) virus infection Human B20 Active Jose Oro 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-CM 04/25 04/25 Wm [place] immunodeficiency ncy virus ) virus [HIV] [HIV] disease disease Medications Medication Instructions Start Stop Generic Name NDC Provider Date Date STRIBILD One tablet by [id number] Denita Herrera [phone] MG mouth daily 09/25 TRICIT-TENOF Signs TABS FLONASE ALLERGY 1 spray PRN FLUTICASONE 69925078452 Denita Herrera RELIEF 50 MCG/ACT PROPIONATE Signs SUSP TYLENOL EXTRA One tablet by 2016/0 ACETAMINOPHEN 00497251586 Verena STRENGTH 500 MG TABS mouth three 04/23 Mya Wright times daily EXECUTIVE DIRECTOR SHELTERED WORKSHOP as needed ATRIPLA 600-200-300 One tablet by EFAVIRENZ-EMTRICIT 46784099470 Mee E MG TABS mouth daily AB-TENOFOVIR Schloneger IBUPROFEN 400 MG 1 every 6 IBUPROFEN 69434663161 Mee E TABS hours PRN Schloneger HYDROCHLOROTHIAZIDE One tablet by HYDROCHLOROTHIAZID 92738665387 Mee E 12.5 MG TABS mouth daily E Schloneger LISINOPRIL 20 MG One tablet by LISINOPRIL 07447195214 Mee E TABS mouth daily Schloneger FLONASE ALLERGY 1 spray PRN FLUTICASONE 98734173215 Mee E RELIEF 50 MCG/ACT PROPIONATE Schloneger SUSP ATRIPLA 600-200-300 One tablet by EFAVIRENZ-EMTRICIT 37843546162 Funmi L MG TABS mouth daily AB-TENOFOVIR Jak EXECUTIVE DIRECTOR SHELTERED WORKSHOP FLONASE ALLERGY 1 spray PRN FLUTICASONE 41816844992 Funmi L RELIEF 50 MCG/ACT PROPIONATE Jak EXECUTIVE DIRECTOR SHELTERED WORKSHOP SUSP ATRIPLA 600-200-300 One tablet by EFAVIRENZ-EMTRICIT 98201098665 Denita J MG TABS mouth daily AB-TENOFOVIR Signs MD ATRIPLA 600-200-300 One tablet by 2015/ EFAVIRENZ-EMTRICIT 09554911523 Funmi L MG TABS mouth daily 10/23 AB-TENOFOVIR Jak EXECUTIVE DIRECTOR SHELTERED WORKSHOP HYDROCHLOROTHIAZIDE One tablet by HYDROCHLOROTHIAZID 42045914684 Funmi L 12.5 MG TABS mouth daily E Jak EXECUTIVE DIRECTOR SHELTERED WORKSHOP HYDROCHLOROTHIAZIDE One tablet by 2015/ HYDROCHLOROTHIAZID 72688565910 Verena 12.5 MG TABS mouth daily 04/23 E Mya Wright EXECUTIVE DIRECTOR SHELTERED WORKSHOP IBUPROFEN 400 MG 1 every 6 IBUPROFEN 32798500647 Funmi L TABS hours PRN Jak EXECUTIVE DIRECTOR SHELTERED WORKSHOP IBUPROFEN 400 MG 1 every 6 2016/ IBUPROFEN 76374997292 Verena TABS hours PRN 04/23 Mya Wright EXECUTIVE DIRECTOR SHELTERED WORKSHOP RIAZ ALLERGY TABS PRN FEXOFENADINE HCL 84171199888 Mee E TABS Schloneger LISINOPRIL 20 MG One tablet by LISINOPRIL 89519292782 Funmi L TABS mouth daily Jak EXECUTIVE DIRECTOR SHELTERED WORKSHOP Medications Administered No information available. Allergies, Adverse Reactions, Alerts Allergy Name Reaction Description Start Date Severity Status Provider DAPSONE Critical Active Funmi Benedict EXECUTIVE DIRECTOR SHELTERED WORKSHOP BACTRIM Critical Active Funmi L Jak EXECUTIVE DIRECTOR SHEL[employer] WORKSHOP Results Date Name Value Unit Range Flag Description Office Visit: Stable CD4 % 23, VL pndg.Change to stribild due to Nightmres SMOK ADVICE yes Smoking cessation education (procedure) Office Visit: HIV w/UD VL <20, CD4 up to 491, quit tobacco, recent GIB MEDS REVIEW Done Documentation of current medications (procedure) ORALTOBACUSE Never Tobacco smoking status NHIS SMOK STATUS Former smoker Tobacco use [facility] Lab Report: Vitamin D,25 Hydroxy VIT [...] hormone, serum Lab Report: CD4, T Lymph [place] Count CD4 % 27.2 % 30.8-58.5 L [...] Count Lab Report: HIV Viral Load Quant [id number] Test not performed . HIV-1 RNA (log 10) HIV1 RNA PCR < 20 . HIV-1 RNA by PCR, serum Lab Report: Rapid Plasmin Reagin (RPR) RPR NONREACTIVE NONREACTIVE rapid plasma reagin antibody, serum Plan of Care Type Date Detail Appointment 01:30 PM Denita Almendarez MD, [address] [facility], [address], [place], [address], Pending order *CD4 - T Cells, Absolute [...] *CD4 - T Cells, Absolute CD4 Count 41903-7 *HIVVL HIV-1, Viral Load Determined by PCR 04525-7 *RPR 15966-3 *HIVVL HIV-1, Viral Load Determined by PCR 38989-5 *RPR 0363-1 *Hep C Antibody, Total 0786-1 *CMP Complete Metabolic Panel 94264-4 *Vitamin D (Calciferol) 3016-3 *TSH 4548-4 *HgA1C 0184-1 *CBC with Differential 0530-1 *CD4 - T Cells, Absolute CD4 Count [id number] CBC with Differential [id number] SGPT (ALT) [id number] SGOT (AST) CPT-25174 GGT [id number],A841775 Creatinine Q968T,P447240 Lipid Profile L844123 Toxoplasma IgG CPT-04327 Hep C AB CPT-37713 HBSAG Y888153, Q59196 Testosterone-Free Q873X,G365600 Testosterone-Total CPT-93845 Pneumococcal (Adult) CPT-96841 Influenza (3 yrs+) CPT-61522 TD Booster CPT-80292 PPD 0184-1 *CBC with Differential 0530-1 *CD4 - T Cells, Absolute CD4 Count 08513-5 *HIVVL HIV-1, Viral Load Determined by PCR 10399-1 *HIVVL HIV-1, Viral Load Determined by PCR 0184-1 *CBC with Differential 3016-3 *TSH 87561-2 *Vitamin D (Calciferol) 0786-1 *CMP Complete Metabolic [...]
--- OUTSIDE RECORDS SUMMARY | 2018-09-05 18:56 | XMS RPT_ITS | Clinical Summary ---
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/25 04/[address]) syndrome Prediabetes R73.09 Inactive Denita J Other abnormal (ICD-10-CM 04/25 04/27 Signs glucose ) Back pain, 464701214 Active Denita J Backache chronic (SNOMED 04/23 04/[address]) GI bleed 63697192 Active Denita J Gastrointestinal (SNOMED 04/23 04/[address]) Postherpetic 7490971 Active Denita J Postherpetic neuralgia (SNOMED 04/25 04/[address]) Prediabetes 0808604 Inactive Denita J Impaired glucose (SNOMED 04/25 04/[address]) Tobacco use 39604058 Removed Denita J Tobacco disorder (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/25 04/[address]) syndrome HIV 41616333 Active Denita J Human infection (SNOMED 04/25 04/[address]) virus infection Human B20 Active Jose Oro 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 04/25 04/25 Wm [place] immunodeficiency ency virus ) virus [HIV] [HIV] disease disease Medications Medication Instructions Start Stop Generic Name NDC Provider Date Date GENVOYA 1 qd [id number] Denita J [phone] MG 01/21 ICIT-TENOFAF Signs TABS STRIBILD One tablet by [id number] 25182794076 Denita J 099-754-285-300 MG mouth daily 09/25 TRICIT-TENOF Signs TABS FLONASE ALLERGY 1 spray PRN FLUTICASONE 04625628886 Denita Herrera RELIEF 50 MCG/ACT PROPIONATE Signs SUSP TYLENOL EXTRA One tablet by ACETAMINOPHEN 09335919790 Verena STRENGTH 500 MG TABS mouth three 04/23 Mya Wright times daily CHAIRMAN & CHIEF EXECUTIVE OFFICER as needed ATRIPLA 600-200-300 One tablet by EFAVIRENZ-EMTRICIT 96539444187 Mee E MG TABS mouth daily AB-TENOFOVIR Schloneger IBUPROFEN 400 MG 1 every 6 IBUPROFEN 51115211271 Mee E TABS hours PRN Schloneger HYDROCHLOROTHIAZIDE One tablet by HYDROCHLOROTHIAZID 24125996255 Mee E 12.5 MG TABS mouth daily E Schloneger LISINOPRIL 20 MG One tablet by LISINOPRIL 51348275257 Mee E TABS mouth daily Schloneger FLONASE ALLERGY 1 spray PRN FLUTICASONE 93606966576 Mee Cage RELIEF 50 MCG/ACT PROPIONATE Schloneger SUSP ATRIPLA 600-200-300 One tablet by EFAVIRENZ-EMTRICIT 50102703504 Funmi L MG TABS mouth daily AB-TENOFOVIR Jak CHAIRMAN & CHIEF EXECUTIVE OFFICER FLONASE ALLERGY 1 spray PRN FLUTICASONE 65160270586 Funmi L RELIEF 50 MCG/ACT PROPIONATE Jak CHAIRMAN & CHIEF EXECUTIVE OFFICER SUSP ATRIPLA 600-200-300 One tablet by EFAVIRENZ-EMTRICIT 60095787039 Denita J MG TABS mouth daily AB-TENOFOVIR Signs MD ATRIPLA 600-200-300 One tablet by 2015/ EFAVIRENZ-EMTRICIT 88744074266 Funmi L MG TABS mouth daily 10/23 AB-TENOFOVIR Jak CHAIRMAN & CHIEF EXECUTIVE OFFICER HYDROCHLOROTHIAZIDE One tablet by HYDROCHLOROTHIAZID 80031891988 Funmi L 12.5 MG TABS mouth daily E Jak CHAIRMAN & CHIEF EXECUTIVE OFFICER HYDROCHLOROTHIAZIDE One tablet by 2015/ HYDROCHLOROTHIAZID 58310948152 Verena 12.5 MG TABS mouth daily 04/23 E Mya Wright CHAIRMAN & CHIEF EXECUTIVE OFFICER IBUPROFEN 400 MG 1 every 6 IBUPROFEN 13347668113 Funmi L TABS hours PRN Jak CHAIRMAN & CHIEF EXECUTIVE OFFICER IBUPROFEN 400 MG 1 every 6 2016/ IBUPROFEN 21083650978 Verena TABS hours PRN 04/23 Mya Wright CHAIRMAN & CHIEF EXECUTIVE OFFICER RIAZ ALLERGY TABS PRN FEXOFENADINE HCL 12043072587 Mee E TABS Schloneger LISINOPRIL 20 MG One tablet by LISINOPRIL 52747932030 Funmi L TABS mouth daily Jak CHAIRMAN & CHIEF EXECUTIVE OFFICER Medications Administered No information available. Allergies, Adverse Reactions, Alerts Allergy Name Reaction Description Start Date Severity Status Provider DAPSONE Critical Active Funmi L Jak CHAIRMAN & CHIEF EXECUTIVE OFFICER BACTRIM Critical Active Funmi L Jak CHAIRMAN & CHIEF EXECUTIVE OFFICER Results Date Name Value Unit Range Flag Description Office Visit: Stable CD4 % 23, VL pndg.Change to stribild due to Nightmres SMOK ADVICE yes Smoking cessation education (procedure) Office Visit: HIV w/UD VL <20, CD4 up to 491, quit tobacco, recent GIB ORALTOBACUSE Never Tobacco smoking status NHIS SMOK STATUS Former smoker Tobacco use [facility] Lab Report: Vitamin D,25 Hydroxy VIT D [...] hormone, serum Lab Report: CD4, T Lymph [place] Count CD4 % 27.2 % 30.8-58.5 L [...] Count Lab Report: HIV Viral Load Quant [id number] Test not performed . HIV-1 RNA (log 10) HIV1 RNA PCR < 20 . HIV-1 RNA by PCR, serum Lab Report: Rapid Plasmin Reagin (RPR) RPR NONREACTIVE NONREACTIVE rapid plasma reagin antibody, serum Office Visit: ITZEL Rucker VL, CD4 490 (27%) HEP B AG [...] *CD4 - T Cells, Absolute CD4 Count 08685-4 *HIVVL HIV-1, Viral Load Determined by PCR 45261-9 *RPR 26428-1 *HIVVL HIV-1, Viral Load Determined by PCR 22318-6 *RPR 0363-1 *Hep C Antibody, Total 0786-1 *CMP Complete Metabolic Panel 01440-1 *Vitamin D (Calciferol) 3016-3 *TSH 4548-4 *HgA1C 0184-1 *CBC with Differential 0530-1 *CD4 - T Cells, Absolute CD4 Count [id number],O318171 CBC with Differential [id number] SGPT (ALT) [id number],[id number] SGOT (AST) CPT-78457 GGT H79445D,W716313 Creatinine Q968T,A677263 Lipid Profile L570016 Toxoplasma IgG CPT-42298 Hep C AB CPT-94105 HBSAG L135798, A91077 Testosterone-Free Q873X,B987894 Testosterone-Total CPT-34291 Pneumococcal (Adult) CPT-36282 Influenza (3 yrs+) CPT-46621 TD Booster CPT-27949 PPD 0184-1 *CBC with Differential 0530-1 *CD4 - T Cells, Absolute CD4 Count 87277-2 *HIVVL HIV-1, Viral Load Determined by PCR 10541-5 *HIVVL HIV-1, Viral Load Determined by PCR 0184-1 *CBC with Differential 3016-3 *TSH 75753-8 *Vitamin D (Calciferol) 0786-1 *CMP Complete Metabolic [...]
--- OUTSIDE RECORDS SUMMARY | 2018-09-05 18:57 | XMS RPT_ITS | Clinical Summary ---
:1955 Author Organization [facility] Address [facility] [place] [address] Phone Care Team Providers Name Role Phone Signs Denita KRUGER Unavailable [ ] Conditions or Problems Problem Name Problem Onset Status Entry Provider Comment Standard Annotate Code Date Date Description Tobacco use 15415945 Resolved Denita Herrera Tobacco disorder (SNOMED 04/25 04/[address]) syndrome Prediabetes 9000534 Inactive Denita Herrera Impaired glucose (SNOMED 04/25 04/[address]) Back pain, 257328843 Active Denita J Backache chronic (SNOMED 04/23 04/[address]) GI bleed 93652739 Active Denita Herrera Gastrointestinal (SNOMED 04/23 04/[address]) Postherpetic 9628049 Active Denita Herrera Postherpetic neuralgia (SNOMED 04/25 04/[address]) Prediabetes 0567595 Inactive Denita Herrera Impaired glucose (SNOMED 04/25 04/[address]) Tobacco use 07377924 Removed Denita Herrera Tobacco disorder (SNOMED 04/25 04/[address]) syndrome HIV 15670922 Active Denita J Human infection (SNOMED 04/25 04/[address]) virus infection Human B20 Active Jose Oro 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 04/25 04/25 Wm JONATHON immunodeficiency ency virus ) virus [HIV] [HIV] disease disease Medications Medication Instructions Start Stop Generic Name NDC Provider Date Date GENVOYA 1 qd [id number] Denita J [phone] MG 01/21 ICIT-TENOFAF Signs TABS STRIBILD One tablet by [id number] 08704993140 Denita J 175-570-656-300 MG mouth daily 09/25 TRICIT-TENOF Signs TABS FLONASE ALLERGY 1 spray PRN FLUTICASONE 67019306809 Denita J RELIEF 50 MCG/ACT PROPIONATE Signs SUSP TYLENOL EXTRA One tablet by ACETAMINOPHEN 74635806547 Verena STRENGTH 500 MG TABS mouth three 04/23 Mya Wright times daily STRAP MAKER as needed ATRIPLA 600-200-300 One tablet by EFAVIRENZ-EMTRICIT 75052249213 Mee E MG TABS mouth daily AB-TENOFOVIR Schloneger IBUPROFEN 400 MG 1 every 6 IBUPROFEN 02745973884 Mee E TABS hours PRN Schloneger HYDROCHLOROTHIAZIDE One tablet by HYDROCHLOROTHIAZID 88676324067 Mee E 12.5 MG TABS mouth daily E Schloneger LISINOPRIL 20 MG One tablet by LISINOPRIL 67894003338 Mee E TABS mouth daily Schloneger FLONASE ALLERGY 1 spray PRN FLUTICASONE 35438377587 Mee Cage RELIEF 50 MCG/ACT PROPIONATE Schloneger SUSP ATRIPLA 600-200-300 One tablet by EFAVIRENZ-EMTRICIT 17852898770 Funmi L MG TABS mouth daily AB-TENOFOVIR Jak STRAP MAKER FLONASE ALLERGY 1 spray PRN FLUTICASONE 33288415632 Funmi L RELIEF 50 MCG/ACT PROPIONATE Jak STRAP MAKER SUSP ATRIPLA 600-200-300 One tablet by EFAVIRENZ-EMTRICIT 00064750765 Denita J MG TABS mouth daily AB-TENOFOVIR Signs MD ATRIPLA 600-200-300 One tablet by 2015/ EFAVIRENZ-EMTRICIT 29615116397 Funmi L MG TABS mouth daily 10/23 AB-TENOFOVIR Jak STRAP MAKER HYDROCHLOROTHIAZIDE One tablet by HYDROCHLOROTHIAZID 14321146428 Funmi L 12.5 MG TABS mouth daily E Jak STRAP MAKER HYDROCHLOROTHIAZIDE One tablet by 2015/ HYDROCHLOROTHIAZID 63335750724 Verena 12.5 MG TABS mouth daily 04/23 E Mya Wright STRAP MAKER IBUPROFEN 400 MG 1 every 6 IBUPROFEN 93098999203 Funmi L TABS hours PRN Jak STRAP MAKER IBUPROFEN 400 MG 1 every 6 2015/ IBUPROFEN 43790736796 Verena TABS hours PRN 04/23 Mya Wright STRAP MAKER RIAZ ALLERGY TABS PRN FEXOFENADINE HCL 38428618655 Mee E TABS Schloneger LISINOPRIL 20 MG One tablet by LISINOPRIL 77656808634 Funmi L TABS mouth daily Jak STRAP MAKER Medications Administered No information available. Allergies, Adverse Reactions, Alerts Allergy Name Reaction Description Start Date Severity Status Provider DAPSONE Critical Active Funmi L Jak STRAP MAKER BACTRIM Critical Active Funmi L Jak STRAP MAKER Results Date Name Value Unit Range Flag Description Office Visit: Stable CD4 % 23, VL pndg.Change to stribild due to Nightmres SMOK ADVICE yes Smoking cessation education (procedure) Office Visit: HIV w/UD VL <20, CD4 up to 491, quit tobacco, recent GIB ORALTOBACUSE Never Tobacco smoking status NHIS SMOK STATUS Former smoker Tobacco use [facility] Lab Report: Vitamin D,25 Hydroxy VIT [...] hormone, serum Lab Report: CD4, T Lymph [place] Count CD4 % 27.2 % 30.8-58.5 L [...] Count Lab Report: HIV Viral Load Quant [id number] Test not performed . HIV-1 RNA (log [...] *CD4 - T Cells, Absolute CD4 Count 75651-2 *HIVVL HIV-1, Viral Load Determined by PCR 69290-2 *RPR 62986-6 *HIVVL HIV-1, Viral Load Determined by PCR 83577-0 *RPR 0363-1 *Hep C Antibody, Total 0786-1 *[facility] Complete Metabolic Panel 84168-8 *Vitamin D (Calciferol) 3016-3 *TSH 4548-4 *HgA1C 0184-1 *CBC with Differential 0530-1 *CD4 - T Cells, Absolute CD4 Count [id number],Q213458 CBC with Differential [id number] SGPT (ALT) [id number] SGOT (AST) CPT-35665 GGT U07897W,[id number] Creatinine Q968T,L606351 Lipid Profile C907023 Toxoplasma IgG CPT-58860 Hep C AB CPT-50835 HBSAG Z399781, A93482 Testosterone-Free Q873X,Y850323 Testosterone-Total CPT-16665 Pneumococcal (Adult) CPT-40324 Influenza (3 yrs+) CPT-53448 TD Booster CPT-13975 PPD 0184-1 *CBC with Differential 0530-1 *CD4 - T Cells, Absolute CD4 Count 60701-7 *HIVVL HIV-1, Viral Load Determined by PCR 37500-0 *HIVVL HIV-1, Viral Load Determined by PCR 0184-1 *CBC with Differential 3016-3 *TSH 68529-8 *Vitamin D (Calciferol) 0786-1 *CMP Complete Metabolic [...]
--- OUTSIDE RECORDS SUMMARY | 2018-09-05 18:57 | XMS RPT_ITS | Clinical Summary ---
:1955 Author Organization [facility] Address [address] [place] [address] Phone Care Team Providers Name Role Phone Signs Denita KRUGER Unavailable [ ] Conditions or Problems Problem Name Problem Onset Status Entry Provider Comment Standard Annotate Code Date Date Description Back pain, 774403514 Active Denita Herrera Backache chronic (SNOMED 04/23 04/[address]) GI bleed 53680561 Active Denita Herrera Gastrointestinal (SNOMED 04/23 04/[address]) Postherpetic 1493379 Active Denita Herrera Postherpetic neuralgia (SNOMED 04/25 04/[address]) Prediabetes 0932704 Active Denita Herrera Impaired glucose (SNOMED 04/25 04/[address]) Tobacco use 48419609 Active Denita Herrera Tobacco disorder (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/25 04/[address]) syndrome HIV infection 64113105 Active Denita Herrera Human (SNOMED 04/25 04/[address]) virus infection Human B20 Active Jose Oro 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-CM 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 04/25 Mw MA immunodeficiency ncy virus ) virus [HIV] [HIV] disease disease Medications Medication Instructions Start Stop Generic Name NDC Provider Date Date GENVOYA 1 qd [id number]-TVRH [id number] Denita Herrera [phone] MG 01/21 ICIT-TENOFAF Signs TABS STRIBILD One tablet by HYKXTJN-OLAVJEP-QI [id number] Denita Herrera [phone] MG mouth daily 09/25 TRICIT-TENOF Signs TABS FLONASE ALLERGY 1 spray PRN FLUTICASONE [id number] Denita J RELIEF 50 MCG/ACT PROPIONATE Signs MD SUSP TYLENOL EXTRA One tablet by ACETAMINOPHEN [id number] Verena STRENGTH 500 MG TABS mouth three 04/23 Mya Wright times daily 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 ATRIPLA 600-200-300 One tablet by EFAVIRENZ-EMTRICIT [id number] Mee E MG TABS mouth daily AB-TENOFOVIR [employer]ger IBUPROFEN 400 MG 1 every 6 IBUPROFEN 08675902675 Mee E TABS hours PRN [employer] HYDROCHLOROTHIAZIDE One tablet by HYDROCHLOROTHIAZID 27728039578 Mee E 12.5 MG TABS mouth daily E [employer] LISINOPRIL 20 MG One tablet by LISINOPRIL [id number] Mee E TABS mouth daily [employer] FLONASE ALLERGY 1 spray PRN FLUTICASONE 58345473315 Mee Cage RELIEF 50 MCG/ACT PROPIONATE [employer]ger SUSP ATRIPLA 600-200-300 One tablet by EFAVIRENZ-EMTRICIT 03376963460 Funmi L MG TABS mouth daily AB-TENOFOVIR Jak 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 FLONASE ALLERGY 1 spray PRN FLUTICASONE [id number] Funmi L RELIEF 50 MCG/ACT PROPIONATE Jak 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 SUSP ATRIPLA 600-200-300 One tablet by EFAVIRENZ-EMTRICIT 84933982558 Denita J MG TABS mouth daily AB-TENOFOVIR Signs ATRIPLA 600-200-300 One tablet by 2015/ EFAVIRENZ-EMTRICIT 99033260094 Funmi L MG TABS mouth daily 10/23 AB-TENOFOVIR Jak 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 HYDROCHLOROTHIAZIDE One tablet by HYDROCHLOROTHIAZID 55704204064 Funmi L 12.5 MG TABS mouth daily E Jak 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 HYDROCHLOROTHIAZIDE One tablet by 2015/ HYDROCHLOROTHIAZID 90684985140 Verena 12.5 MG TABS mouth daily 04/23 E Mya Wright 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 BACTRIM Critical Active Funmi Yap Jak 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 Results Date Name Value Unit Range Flag Description Office Visit: Stable CD4 % 23, VL pndg.Change to stribild due to Nightmres SMOK ADVICE yes Smoking cessation education (procedure) Office Visit: HIV w/UD VL <20, CD4 up to 491, quit tobacco, recent GIB MEDS REVIEW Done Documentation of current medications (procedure) ORALTOBACUSE Never Tobacco smoking status NHIS SMOK STATUS Former smoker Tobacco use [facility] Lab Report: Vitamin D,25 Hydroxy VIT [...] hormone, serum Lab Report: CD4, T Lymph Lund Count CD4 % 27.2 % 30.8-58.5 L [...] Count Lab Report: HIV Viral Load Quant [id number] Test not performed . HIV-1 RNA (log 10) HIV1 RNA PCR < 20 . HIV-1 RNA by PCR, serum Lab Report: Rapid Plasmin Reagin (RPR) RPR NONREACTIVE NONREACTIVE rapid plasma reagin antibody, serum Plan of Care Type Date Detail Appointment 01:30 PM Denita Almendarez MD, [address] [facility], [address], [place], [address], Pending order *CBC with Differential Pending order [...] *CD4 - T Cells, Absolute CD4 Count 15394-2 *HIVVL HIV-1, Viral Load Determined by PCR 03105-4 *RPR 49541-8 *HIVVL HIV-1, Viral Load Determined by PCR 62626-9 *RPR 0363-1 *Hep C Antibody, Total 0786-1 *CMP Complete Metabolic Panel 95325-0 *Vitamin D (Calciferol) 3016-3 *TSH 4548-4 *HgA1C 0184-1 *CBC with Differential 0530-1 *CD4 - T Cells, Absolute CD4 Count P4758q,T118029 CBC with Differential [id number] SGPT (ALT) R00529E,J759928 SGOT (AST) CPT-06313 GGT G97276L,R745061 Creatinine Q968T,Y135899 Lipid Profile [id number] Toxoplasma IgG CPT-98595 Hep C AB CPT-84792 HBSAG W570663, S28374 Testosterone-Free Q873X,M768359 Testosterone-Total CPT-01813 Pneumococcal (Adult) CPT-54459 Influenza (3 yrs+) CPT-29506 TD Booster CPT-51825 PPD 0184-1 *CBC with Differential 0530-1 *CD4 - T Cells, Absolute CD4 Count 66349-2 *HIVVL HIV-1, Viral Load Determined by PCR 85620-4 *HIVVL HIV-1, Viral Load Determined by PCR 0184-1 *CBC with Differential 3016-3 *TSH 09751-8 *Vitamin D (Calciferol) 0786-1 *CMP Complete Metabolic [...]
--- OUTSIDE RECORDS SUMMARY | 2018-09-05 18:57 | XMS RPT_ITS ---
:1955 Author Organization OHIP Care Team Providers Name Role Phone Antonina PLUMMER (PA-C) Attending Unavailable Antonina PLUMMER (SHELBIEC) Referring Unavailable JAZMYN ORTEGA (MARKETING ANALYST) Attending Unavailable WHITLEY HEALY Referring Unavailable Jaylon Canela Attending Unavailable Jaylon Canela Referring Unavailable Whitley Healy Primary Care Unavailable PROBLEMS PROBLEMS DATE TYPE CONDITION / CODE ATTENDING STATUS SOURCE 07/22/2018 Unknown B20 - Human Aditya, Active Salty immunodeficiency virus [facility] [HIV] disease / Hospital B20(ICD-10) Repository 11/25/2013 Active Human immunodeficiency NA Active Rahman virus (HIV) disease / Clinic Main B20(ICD-10) [place] Repository 09/04/2017 Active Bronchitis, not NA Active Rahman specified as acute or Clinic Main chronic / J40(ICD-10) [facility] Repository PROCEDURES PROCEDURES No Procedure Records FoundRESULTS RESULTS CBC-COMPLETE BLOOD CNT Collected: 07/12/2018 Status: F Source: SALTY NO DIFF 8:04 AM [facility] REPOSITORY TYPE CODE TESTS RESULT OUT OF RANGE REFERENCE UNITS LAB L100.1000 4.4-11.0 K/mm3 Normal WBC 6.5 LAB L100.1200 4.6-6.2 M/mm3 Normal RBC 4.78 LAB L100.1300 13.0-16.5 g/dl Normal HGB 14.8 LAB L100.1400 40-54 % Normal HCT 43.6 LAB L100.1500 80-94 fL Normal MCV 91.2 LAB L100.1600 27.0-32.0 pg Normal MCH 31.0 LAB L100.1700 32-36 g/gl Normal MCHC 33.9 LAB L100.1810 11.6-14.6 % Normal RDW CV 13.2 LAB L100.1820 35.1-43.9 fl Normal RDW SD 43.9 LAB L100.1900 150-450 K/mm3 Normal PLT 215 LAB L100.2000 6.2-12.0 fl Normal MPV 9.1 Performed By: #### L100.0500 #### [facility] [address] [place], [place], [address] BASIC METABOLIC Collected: 07/12/2018 Status: F Source: SALTY PROFILE (BMP) 8:04 AM [facility] REPOSITORY Order Comment: Comments: [id number] QUANTIFERON TYPE CODE TESTS RESULT OUT OF RANGE REFERENCE UNITS LAB L501.0100 74-106 mg/dL High GLU 131 Result Comment: Fasting Glucose result greater than or equal to 126 mg/dL suggests DIABETES MELLITUS per A.D.A. criteria. Please note revised GLUCOSE reference range effective 2017. LAB L501.1000 7-18 mg/dL Normal BUN 16 LAB L501.1100 0.70-1.30 mg/dL Normal CREAT,SERUM 0.85 Result Comment: The validity of the calculated GFR AND GFRAA in patients over 70 years has not been determined. Clinical correlation is essential. LAB L501.1110 >60 mL/min Normal EST GFR 97 Result Comment: Non- GFR Calc LAB L501.1115 >60 mL/min Normal EST GFR - AA 118 Result Comment: GFR Calc LAB L501.1300 10-20 RATIO Normal BUN/CRE 18.8 LAB L501.2200 8.5-10.1 mg/dL Low CA 8.4 LAB L501.5300 136-145 mmol/L NA Normal 139 LAB L501.5600 3.5-5.1 mmol/L K Normal 4.1 LAB L501.5900 98-107 mmol/L High CL 109 LAB L501.6100 21.0-32.0 mmol/L Normal CO2 22.0 LAB L501.6200 5-15 Normal GAP 8 Performed By: #### L500.2500, L500.3400, L500.4100 #### [facility] [address] [place], [place], [id number] LIVER PROFILE Collected: 07/12/2018 Status: F Source: SALTY 8:04 AM [facility] REPOSITORY Order Comment: Comments: [id number] QUANTIFERON TYPE CODE TESTS RESULT OUT OF RANGE REFERENCE UNITS LAB L501.1500 6.4-8.2 g/dL Normal T PROT 7.5 LAB L501.1800 3.2-5.0 g/dL Normal ALB 3.6 LAB L501.1950 2.2-4.2 g/dL Normal GLOB 3.9 LAB L501.4100 15-37 U/L Normal AST 20 LAB L501.4305 45-117 U/L Normal ALK P 96 LAB L501.4405 16-61 U/L Normal ALT 36 LAB L501.4600 0.20-1.00 mg/dL Normal T BILI 0.30 LAB L501.4700 0.00-0.30 mg/dL Normal D BILI 0.08 Performed By: #### L500.2500, L500.3400, L500.4100 #### [facility] [address] [place], [address] LIPID PROFILE Collected: 07/12/2018 Status: F Source: SALTY 8:04 [facility] REPOSITORY Order Comment: Comments: [id number] QUANTIFERON TYPE CODE TESTS RESULT OUT OF RANGE REFERENCE UNITS LAB L501.4900 200 mg/dL High CHOL 213 Result Comment: <200 mg/dL Desirable 200-240 mg/dL Borderline >240 mg/dL High Risk LAB L501.5000 mg/dL High TRIG 211 Result Comment: The drugs N-Acetylcysteine and Metamizole may falsely depress this assay. Serum Triglycerides Reference Interval Normal <150 mg/dL Borderline high 150 - 199 mg/dL High 200 - 499 mg/dL Very High > or = 500 mg/dL LAB L501.6400 mg/dL Low HDL 35 Result Comment: The drugs N-Acetylcysteine and Metamizole may falsely depress this assay. Reference Range HDL <40 mg/dL Low HDL Cholesterol HDL >or= 60 mg/dL High HDL Cholesterol LAB L501.6500 0-130 mg/dL High LDL 136 LAB L501.6600 5-40 mg/dL High VLDL 42 Performed By: #### L500.2500, L500.3400, L500.4100 #### [facility] [address] [place], [place], [address] URINALYSIS, COMPLETE Collected: 07/12/2018 Status: F Source: AMORET 8:04 AM [facility] REPOSITORY Order Comment: Comments: [id number] QUANTIFERON How was Urine Obtained? CLEAN CATCH TYPE CODE TESTS RESULT OUT OF RANGE REFERENCE UNITS LAB L400.3000 Yellow COLOR Normal Yellow LAB L400.3050 Clear Normal CLARITY Clear LAB L400.3200 Normal mg/dl Normal GLUCOSE, UR Normal LAB L400.3300 Negative mg/dL Normal BILIRUBIN URINE Negative LAB L400.3400 Negative mg/dl High 5 KETONE UR LAB L400.3465 1.002-1.030 Normal SP.GR. DIPSTX 1.020 LAB L400.3550 5.0 - 8.0 pH UR Normal 5.0 LAB L400.3600 Negative mg/dl High PROT 30 DIPSTX LAB L400.3700 Normal mg/dl Normal UROBILI Normal LAB L400.3750 Negative Normal NITRITE UR Negative LAB L400.3780 Negative /ul Normal OCCULT BLOOD-UR Negative LAB L400.3800 Negative /ul LEUK Normal ESTERASE Negative LAB L400.4050 0-5 /hpf WBC 0 Normal SEEN LAB L400.4100 0-5 /hpf 0 Normal RBC-UA SEEN LAB L400.4150 0-5 /hpf SQUAM 0 Normal EPI SEEN LAB L400.4300 None Seen /hpf 0 Normal BACTERIA SEEN LAB L400.4350 <or=2+ /hpf 0 Normal MUCUS, URINE SEEN Performed By: #### L400.0001 #### [facility] [place], [address] CHLAMYDIA PCR ([facility]) Collected: 07/12/2018 Status: F Source: AMORET 8:04 AM [facility] REPOSITORY TYPE CODE TESTS RESULT OUT OF RANGE REFERENCE UNITS LAB L8200.2100 Negative Normal Chlam Negative Trac PCR Performed By: #### L8200.2020, L8200.3000 #### [facility] [address] [facility] [place], [place], [address] TRICHOMONAS VAGINALIS Collected: 07/12/2018 Status: F Source: AMORET WCH/PCR 8:04 AM [facility] REPOSITORY TYPE CODE TESTS RESULT OUT OF RANGE REFERENCE UNITS LAB L8200.3100 Negative Normal TV RESULT Negative Performed By: #### L8200.2020, L8200.3000 #### [facility] [address] [place], [address] HEPATITIS A AB, TOTAL Collected: 07/12/2018 Status: C Source: SALTY 8:04 AM [facility] REPOSITORY TYPE CODE TESTS RESULT OUT OF REFERENCE UNITS RANGE LAB L3100.0300 Negative High HEP A Positive AB,[id number] Result Comment: Performed at: [facility] [id number] Lead Presser: Chong Laura PhD, Phone: [phone] RESULTS CALLED TO ASHELY PRECIADO(DR CANELA OFF) 07/14/18 1440 [facility]. REPORT READ BACK BY ASHELY. RESULTS FAXED TO [facility] 07/14/18 1441 [facility]. AMENDED REPORT 07/14/18 1441 HEP A AB,T.[id number] previously reported as: Positive H Performed at: [facility] [id number] Lead Presser: Chong Laura PhD, Phone: [phone] Performed By: #### L3100.0300, L3100.0390, L3100.0625, L3890.0200 #### [facility] (refer to report for specific site) refer to report for address and phone number HEPATITIS B SURFACE Collected: 07/12/2018 Status: F Source: SALTY AG 8:04 AM [facility] REPOSITORY TYPE CODE TESTS RESULT OUT OF RANGE REFERENCE UNITS LAB L3100.0400 Negative Normal HB Negative SURF AG Performed By: #### L3100.0300, L3100.0390, L3100.0625, L3890.0200 #### [facility] (refer to report for specific site) refer to report for address and phone number HEPATITIS C ANTIBODIES Collected: 07/12/2018 Status: F Source: SALTY 8:04 AM [facility] REPOSITORY TYPE CODE TESTS RESULT OUT OF RANGE REFERENCE UNITS LAB L3100.0650 0.0-0.9 s/co ratio Normal HEP C AB <0.1 Result Comment: Negative: < 0.8 Indeterminate: 0.8 - 0.9 Positive: > 0.9 The CDC recommends that a positive HCV antibody result be followed up with a HCV Nucleic Acid Amplification test ([id number]). Performed By: #### L3100.0300, L3100.0390, L3100.0625, L3890.0200 #### [facility] (refer to report for specific site) refer to report for address and phone number CD4, T LYMPH HELPER Collected: 07/12/2018 Status: F Source: SALTY COUNT 8:04 AM [facility] REPOSITORY TYPE CODE TESTS RESULT OUT OF REFERENCE UNITS RANGE LAB L3890.0800 3.4-10.8 x10E3/uL WBC Normal Count 6.8 LAB L3890.0900 4.14-5.80 x10E6/uL RBC Normal Count 4.76 LAB L3890.1000 13.0-17.7 g/dL Normal Hemoglobin 14.6 LAB L3890.1100 37.5-51.0 % Normal Hematocrit 43.2 LAB L3890.1200 79-97 fL MCV 91 Normal LAB L3890.1300 26.6-33.0 pg MCH Normal 30.7 LAB L3890.1400 31.5-35.7 g/dL MCHC Normal 33.8 LAB L3890.1450 12.3-15.4 % RDW Normal 14.1 LAB L3890.1500 150-379 x10E3/uL Normal Platelets 216 LAB L3890.1600 Not Estab. % 58 Normal Neutrophils LAB L3890.1700 Not Estab. % Lymphs 26 Normal LAB L3890.1800 Not Estab. % 9 Normal Monocytes LAB L3890.1900 Not Estab. % 6 Normal Eosinophils LAB L3890.2000 Not Estab. % 1 Normal Basophils LAB L3890.2100 1.4-7.0 x10E3/uL Neutr Normal Absolute 4.0 LAB L3890.2200 0.7-3.1 x10E3/uL Lymphs Normal Absolute 1.8 LAB L3890.2300 0.1-0.9 x10E3/uL Monos Normal Absolute 0.6 LAB L3890.2400 0.0-0.4 x10E3/uL Eos Normal Absolute 0.4 LAB L3890.2500 0.0-0.2 x10E3/uL Basos Normal Absolute 0.1 LAB L3890.2505 . Immature Normal CellS Test not performed LAB L3890.2510 Not Estab. % Immature 0 Normal Grans LAB L3890.2515 0.0-0.1 x10E3/uL Imm 0 Normal Grans Abs LAB L3890.2520 . NRBC Normal Count Test not performed LAB L3890.2525 . HEME Normal COMMENT Test not performed LAB L3890.2530 359-1519 /uL ABS CD4 Normal HELPER 502 LAB L3890.2575 30.8-58.5 % Low % CD4 POS.LYMPH 27.9 Performed By: #### L3100.0300, L3100.0390, L3100.0625, L3890.0200 #### [facility] (refer to report for specific site) refer to report for address and phone number HIV VIRAL LOAD Collected: 07/12/2018 Status: F Source: SALTY QUANT 8:04 AM [facility] REPOSITORY TYPE CODE TESTS RESULT OUT OF RANGE REFERENCE UNITS LAB L3890.4100 . copies/mL Normal HIV-1 < 20 RNA,QUANT Result Comment: HIV-1 RNA detected The reportable range for this assay is 20 to 10,000,000 copies HIV-1 RNA/mL. LAB L3890.4200 . Normal Test not log10 performed HIV-1 RNA Result Comment: Result Units: iek22ucnd/mL Unable to calculate result since non-numeric result obtained for component test. Performed at: [address] [id number] Lead Presser: Calista Diaz MD, Phone: [phone] Performed By: #### L3890.4000 #### [facility] (refer to report for specific site) refer to report for address and phone number MISCELLANEOUS LAB Collected: 07/12/2018 Status: F Source: SALTY PROCEDURE 8:04 AM [facility] REPOSITORY Order Comment: Comments: [id number] QUANTIFERON Test(s) Ordered: [id number] QUANTIFERON TYPE CODE TESTS RESULT OUT OF RANGE REFERENCE UNITS LAB L801.1541 Normal [facility] LAB TEST Result Comment: TEST RESULT LIMITS QuantiFERON-TB Gold Plus QuantiFERON Incubation Incubation performed. QuantiFERON Criteria The QuantiFERON-TB Gold Plus result is determined by subtracting the Nil value from either TB antigen (Ag) tube. The mitogen tube serves as a control for the test. QuantiFERON TB1 Ag Value 0.03 IU/mL QuantiFERON TB2 Ag Value 0.03 IU/mL QuantiFERON Nil Value 0.04 IU/mL QuantiFERON Mitogen Value >10.00 IU/mL QuantiFERON-TB Gold Plus Negative Negative TESTING PERFORMED AT [facility]. ORIGINAL REPORT ON FILE IN LAB CONTAINS ADDITIONAL TEST SITE INFORMATION. Performed By: #### L801.1541 #### [facility] [address] [place], [address] RAPID PLASMIN REAGIN Collected: 07/12/2018 Status: F Source: AMORET (RPR) 8:04 AM [facility] REPOSITORY TYPE CODE TESTS RESULT OUT OF REFERENCE UNITS RANGE LAB L700.5000 NONREACTIVE NONREACTIVE Normal RPR Performed By: #### L700.5000 #### [facility] [address] [place], [address] PROGRESS Observed: 11/24/2017 Status: COMPLETED Source: [place] 1:03 PM [facility] REPOSITORY HNO ID: [id number] Author: Humble Kyle Service: (none) Author Type: Nurse Practitioner Type: Progress Notes Filed: 11/24/2017 1:49 PM Note Text: Subjective HPI HPI Jaylon Sauer is a 62 year old male who presents today for CC of ingrown toenail. This started 2 weeks. Has tried nothing. Symptoms are worsened nothing. Risk factors hx of ingrown toenails, needing excision, patient HIV positive. .Patient presents with: Ingrown Toenail PAST MEDICAL HISTORY Diagnosis Date - Blood dyscrasia - HIV (human immunodeficiency virus infection) ([facility]) Signs - Hypertension - Mental disorder - Postherpetic neuralgia 2010 Head pain - Snoring PAST SURGICAL HISTORY Procedure Laterality Date - COLONOSCOP W/ OR W/O BRSH SPEC 08/15/15 Colonoscopy - EGD W/O OR W/BRUSH/WASH 04/25/2016 EGD - PAST SURGICAL HISTORY OF 1980s ORIF with plate and screws LFA - TOOTH EXTRACTION 10/2011 all teetth removed ALLERGIES Bactrim [Sulfamethoxazole]; Dapsone MEDICATIONS lisinopril (ZESTRIL, PRINIVIL) 20 mg tablet Take 1 tablet by mouth once daily. pantoprazole DR (PROTONIX) 40 mg tablet Take 1 tablet by mouth daily before breakfast. Take on empty stomach, 1/2 hr before meal. fluticasone (FLONASE) 50 mcg/actuation nasal spray Use 2 Sprays in each nostril once daily. Rinse mouth after use. Blood Pressure Cuff - Home Use BLOOD PRESSURE CUFF FOR HOME USE. DX: LABILE BLOOD PRESSURE COMPOUNDED PRESCRIPTION Blood pressure wrist cuffDx.i10 vcaqusantoxy-vyctlevwbs-moeojygsnioft-tenofovir (STRIBILD) [phone] mg tablet Take 1 tablet by mouth daily with food. fluticasone (FLONASE) 50 mcg/actuation nasal spray Use 2 Sprays in each nostril once daily. Rinse mouth after use. Cholecalciferol, Vitamin D3, (VITAMIN D) 1,000 unit cap Take 1,000 Units by mouth once daily. Cetirizine (ZYRTEC) 10 mg cap Take 1 tablet by mouth once daily. FAMILY HISTORY Problem Relation Age of Onset - None Mother - Psychiatry Father - None Sister - None Sister - None Brother - None Child Social History Substance Use Topics - Smoking status: Former Smoker Packs/day: 0.10 Years: 20.00 Types: Cigarettes - Smokeless tobacco: Never Used Comment: 1-2 cig daily on average per patient - Alcohol use No Review of Systems Constitutional: Negative for chills and fever. Skin: Negative for itching and rash. Objective Blood pressure 120/90, pulse 80, temperature 36.7 ?C (98 ?F), temperature source Left Tympanic, resp. rate 18, weight 105.2 kg (232 lb). Physical Exam Constitutional: He is oriented to person, place, and time and well-developed, well-nourished, and in no distress. Non-toxic appearance. He does not have a sickly appearance. No distress. HENT: Head: Normocephalic and atraumatic. Cardiovascular: Pulses: Dorsalis pedis pulses are 2+ on the right side Posterior tibial pulses are 2+ on the right side Pulmonary/Chest: Effort normal. No accessory muscle usage. No respiratory distress. Musculoskeletal: Feet: Neurological: He is alert and oriented to person, place, and time. Skin: He is not diaphoretic. ASSESSMENT/PLAN: 1. Ingrown toenail of right foot with infection - ICD9: 703.0, ICD10: L60.0 -take medications as prescribed -call [phone] On Saturday to schedule with podiatry (Dr. Pyle) for toenail removal -follow up sooner if symptoms of infection occur/worsen. - CEPHALEXIN 500 MG CAPSULE Humble Kyle APRN.CNP CNOV Observed: 11/24/2017 Status: COMPLETED Source: [place] 1:00 PM [facility] REPOSITORY Office Visit (WSTR) JAYLON SAUER ([id number]) 1955 M Date Time Provider Department 11/24/17 1:00 PM HUMBLE KYLE (MANDEEP) WSTR During your visit today, we recorded the following information about you: Temperature Pulse Respiration Blood pressure 98 degrees 80/minute 18/minute 120/90 Weight 105.2 kg Humble Kyle APRN.CNP 11/24/2017 1:49 PM Signed Subjective HPI HPI Jaylon Sauer is a 62 year old male who presents today for CC of ingrown toenail. This started 2 weeks. Has tried nothing. Symptoms are worsened nothing. Risk factors hx of ingrown toenails, needing excision, patient HIV positive. .Patient presents with: Ingrown Toenail PAST MEDICAL HISTORY Diagnosis Date - Blood dyscrasia - HIV (human immunodeficiency virus infection) ([facility]) Signs - Hypertension - Mental disorder - Postherpetic neuralgia 2010 Head pain - Snoring PAST SURGICAL HISTORY Procedure Laterality Date - COLONOSCOP W/ OR W/O BRSH SPEC 08/15/15 Colonoscopy - EGD W/O OR W/BRUSH/WASH 04/25/2016 EGD - PAST SURGICAL HISTORY OF 1980s ORIF with plate and screws LFA - TOOTH EXTRACTION 10/2011 all teetth removed ALLERGIES Bactrim [Sulfamethoxazole]; Dapsone MEDICATIONS lisinopril (ZESTRIL, PRINIVIL) 20 mg tablet Take 1 tablet by mouth once daily. pantoprazole DR (PROTONIX) 40 mg tablet Take 1 tablet by mouth daily before breakfast. Take on empty stomach, 1/2 hr before meal. fluticasone (FLONASE) 50 mcg/actuation nasal spray Use 2 Sprays in each nostril once daily. Rinse mouth after use. Blood Pressure Cuff - Home Use BLOOD PRESSURE CUFF FOR HOME USE. DX: LABILE BLOOD PRESSURE COMPOUNDED PRESCRIPTION Blood pressure wrist cuffDx.i10 dczbveggbmcc-jxkctgphwv-sxyczmpwsftmu-tenofovir (STRIBILD) [phone] mg tablet Take 1 tablet by mouth daily with food. fluticasone (FLONASE) 50 mcg/actuation nasal spray Use 2 Sprays in each nostril once daily. Rinse mouth after use. Cholecalciferol, Vitamin D3, (VITAMIN D) 1,000 unit cap Take 1,000 Units by mouth once daily. Cetirizine (ZYRTEC) 10 mg cap Take 1 tablet by mouth once daily. FAMILY HISTORY Problem Relation Age of Onset - None Mother - Psychiatry Father - None Sister - None Sister - None Brother - None Child Social History Substance Use Topics - Smoking status: Former Smoker Packs/day: 0.10 Years: 20.00 Types: Cigarettes - Smokeless tobacco: Never Used Comment: 1-2 cig daily on average per patient - Alcohol use No Review of Systems Constitutional: Negative for chills and fever. Skin: Negative for itching and rash. Objective Blood pressure 120/90, pulse 80, temperature 36.7 ?C (98 ?F), temperature source Left Tympanic, resp. rate 18, weight 105.2 kg (232 lb). Physical Exam Constitutional: He is oriented to person, place, and time and well-developed, well-nourished, and in no distress. Non-toxic appearance. He does not have a sickly appearance. No distress. HENT: Head: Normocephalic and atraumatic. Cardiovascular: Pulses: Dorsalis pedis pulses are 2+ on the right side Posterior tibial pulses are 2+ on the right side Pulmonary/Chest: Effort normal. No accessory muscle usage. No respiratory distress. Musculoskeletal: Feet: Neurological: He is alert and oriented to person, place, and time. Skin: He is not diaphoretic. ASSESSMENT/PLAN: 1. Ingrown toenail of right foot with infection - ICD9: 703.0, ICD10: L60.0 -take medications as prescribed -call [phone] On Saturday to schedule with podiatry (Dr. Pyle) for toenail removal -follow up sooner if symptoms of infection occur/worsen. - CEPHALEXIN 500 MG CAPSULE ANUJ Mark APRN.CNP 11/24/2017 1:16 PM Addendum ASSESSMENT/PLAN: 1. Ingrown toenail of right foot with infection - ICD9: 703.0, ICD10: L60.0 -take medications as prescribed -call [phone] On Saturday to schedule with podiatry (Dr. Pyle) for toenail removal -follow up sooner if symptoms of infection occur/worsen. - CEPHALEXIN 500 MG CAPSULE Referring Provider: SELF [200] Allergies As of Date: 11/24/2017 Noted Allergy Reaction BACTRIM (SULFAMETHOXAZOLE) 01/19/2011 2 - Rash DAPSONE 02/07/2011 2 - Rash Date Reviewed: 11/24/2017 Reviewed by: Humble Verde) - Fully Assessed Reason for Visit: Ingrown Toenail [111] Primary Visit Diagnosis:Ingrown toenail of right foot with infection [L60.0] Order(s):cephALEXin (KEFLEX) 500 mg capsuleTake 1 capsule by mouth three times daily for 10 days.Disp: 30 capsuleRfl: 0 CONSULT TO PODIATRY [9034] Order #: [id number]: 1 Prescriptions as of 11/24/2017 Sig: CEPHALEXIN 500 MG CAPSULE Take 1 capsule by mouth three* LISINOPRIL 20 MG TABLET Take 1 tablet by mouth once d* PANTOPRAZOLE 40 MG TABLET,DEL* Take 1 tablet by mouth daily * FLUTICASONE 50 MCG/ACTUATION * Use 2 Sprays in each nostril * COMPOUNDED PRESCRIPTION BLOOD PRESSURE CUFF FOR HOME * COMPOUNDED PRESCRIPTION Blood pressure wrist cuff Dx* ELVITEG 150 MG-COB 150 MG-EMT* Take 1 tablet by mouth daily * FLUTICASONE 50 MCG/ACTUATION * Use 2 Sprays in each nostril * CHOLECALCIFEROL (VITAMIN D3) * Take 1,000 Units by mouth onc* CETIRIZINE 10 MG CAPSULE Take 1 tablet by mouth once d* Problem List As Of Date 11/24/2017 Noted Resolved PHN (postherpetic neuralgia) [B02.29] INVALID FOR*06/16/2014 HTN (hypertension) [I10] INVALID FOR* Generalized headaches [R51] INVALID FOR*06/16/2014 Occipital neuralgia [M54.81] INVALID FOR*06/16/2014 Human immunodeficiency virus (HIV) disease (HCC*INVALID FOR* More... Hyperlipidemia [E78.5] INVALID FOR* Seasonal rhinitis [J30.2] INVALID FOR* Vitamin D deficiency [E55.9] INVALID FOR* Tobacco use disorder [F17.200] INVALID FOR*11/09/2016 Other instructions from your clinician: ASSESSMENT/PLAN: 1. Ingrown toenail of right foot with infection - ICD9: 703.0, ICD10: L60.0 -take medications as prescribed -call [phone] On Saturday to schedule with podiatry (Dr. Pyle) for toenail removal -follow up sooner if symptoms of infection occur/worsen. - CEPHALEXIN 500 MG CAPSULE Prescriptions ordered this encounter Disp Refills Start End CEPHALEXIN 500 MG CAPSULE 30 c* 0 11/24/2017 12/04/2017 Route: ORAL Sig: Take 1 capsule by mouth three times daily for 10 days. Encounter Status:Closed by HUMBLE KYLE CNP on 11/24/17 CBC AND DIFFERENTIAL Collected: 11/11/2017 Status: F Source: [place] 9:12 AM [facility] REPOSITORY TYPE CODE TESTS RESULT OUT OF REFERENCE UNITS RANGE LAB WBC 3.70-11.00 k/uL WBC 6.60 LAB RBC 4.20-6.00 m/uL RBC 4.79 LAB HGB 13.0-17.0 g/dL Hemoglobin 14.5 LAB HCT 39.0-51.0 % Hematocrit 43.7 LAB MCV 80.0-100.0 fL MCV 91.2 LAB MCH 26.0-34.0 pG MCH 30.3 LAB MCHC 30.5-36.0 g/dL MCHC 33.2 LAB RDWCV 11.5-15.0 % RDW-CV 13.2 LAB PLTCT 150-400 k/uL Platelet Count 250 LAB MPV 9.0-12.7 fL MPV 9.1 LAB ANEUT % Neut% 58.1 LAB AANEUT 1.45-7.50 k/uL Abs Neut 3.81 LAB ALYMP % Lymph% 30.0 LAB AALYMP 1.00-4.00 k/uL Abs Lymph 1.98 LAB AMONO % Coos% 6.5 LAB AAMONO <0.87 k/uL Abs Coos 0.43 LAB AEOS % Eosin% 4.8 LAB AAEOS <0.46 k/uL Abs Eosin 0.32 LAB ABASO % Baso% 0.6 LAB AABASO <0.11 k/uL Abs Baso 0.04 LAB AUNRBC 0 /100 WBC NRBCs 0.0 LAB ABNRBC <0.01 k/uL Absolute nRBC <0.01 LAB DTYP DTYPE Auto Diff Performed By: #### CBCDIF, CMP, HIVRNA #### [facility] [address] [place] [address] COMP METABOLIC PANEL Collected: 11/11/2017 Status: F Source: [place] 9:12 AM [facility] REPOSITORY TYPE CODE TESTS RESULT OUT OF REFERENCE UNITS RANGE LAB TP 6.3-8.0 g/dL Protein, Total 7.7 LAB ALB 3.9-4.9 g/dL Albumin 4.3 LAB CA 8.5-10.2 mg/dL Calcium, Total 9.3 LAB TBIL 0.2-1.3 mg/dL Bilirubin, Total 0.3 LAB ALKP 36-108 U/L Alkaline Phosphatase 79 LAB AST 14-40 U/L AST 20 LAB GLU 74-99 mg/dL Glucose High 115 Result Comment: The [place] [employer] (ADA) provides guidance for cutoff values for fasting glucose and random glucose. The ADA defines fasting as no caloric intake for at least 8 hours. Fas ting plasma glucose results between 100 to 125 mg/dL indicate increased risk for diabetes (prediabetes). Fasting plasma glucose results greater than or equal to 126 mg/dL meet the criteria for diagnosis of diabetes. In the absence of unequivocal hyperglycemia, results should be confirmed by repeat testing. In a patient with classic symptoms of hyperglycemia or hyperglycemic crisis, random plasma glucose results greater than or equal to 200 mg/dL meet the criteria for diagnosis of diabetes. Reference: Standards of Medical Care in Diabetes 2016, [place] [employer]. Diabetes Care. 2016.39(Suppl 1). LAB BUN 9-24 mg/dL BUN 12 LAB CRET 0.73-1.22 mg/dL Creatinine 0.81 LAB NA 136-144 mmol/L Sodium 140 LAB K 3.7-5.1 mmol/L Potassium 4.7 LAB CL 97-105 mmol/L Chloride 103 LAB CO2 22-30 mmol/L CO2 22 LAB AGAP 9-18 mmol/L Anion Gap 15 LAB ALT 10-54 U/L ALT 23 LAB GFRAA eGFR- Amer. >60 LAB GFRNAA . eGFR-All Other Races >60 Result Comment: eGFR (Estimated GFR) Units of measure: mL/min/1.73 meters squared eGFR is derived from the reexpressed MDRD Study equation using the following parameters: serum creatinine, age, gender and race. The creatinine assay has been calibrated to be traceable to IDMS. An eGFR <60 mL/min/1.73m2 for >3 months is consistent with chronic kidney disease. Refer to KDOQI guidelines for clinical interpretation. In patients with unstable renal function, e.g. those with acute kidney injury, the eGFR may not accurately reflect actual GFR. Performed By: #### CBCDIF, CMP, HIVRNA #### [facility] [employer] [address] [place], [place] [address] HIV QUANT RNA BY Collected: 11/11/2017 Status: F Source: [facility] 9:12 AM [facility]INIC [facility] REPOSITORY TYPE CODE TESTS RESULT OUT OF REFERENCE UNITS RANGE LAB HIVRNA copies/mL HIV Negative for Quant RNA HIV-1 RNA by by PCR PCR. Result Comment: Linear range of assay: 20 copies/mL to 10,000,000 copies/ml. (NOTE) HIV Information: [place] Rev. Code 3701.243(E): This information has been disclosed to you from confidential records protected from disclosure by state law. You shall make no further disclosure of this information without the specific, written, and informed release of the individual to whom it pertains, or as otherwise permitted by state law. A general authorization for the release of medical or other information is not sufficient for the purpose of the release of HIV test results or diagnoses. Performed By: #### CBCDIF, CMP, HIVRNA #### [facility] [address] [place], [place] [address] XR CHEST 2V FRONTAL/LAT Observed: 09/04/2017 Status: F Source: [place] 11:38 AM [facility] REPOSITORY * * *Final Report* * * DATE OF EXAM: Sep 04 2017 11:38AM WOX [id number] - XR CHEST 2V FRONTAL/LAT / PROCEDURE REASON: Bronchitis, not specified as acute or chronic * * * * Physician Interpretation * * * * EXAMINATION: CHEST RADIOGRAPH (2 VIEW FRONTAL and LATERAL) Clinical History: Bronchitis, not specified as acute or chronic M: XC2_3 Comparison: None RESULT: Lines, tubes, and devices: None. Lungs and pleura: No consolidation. No lung mass. No pleural effusion. Cardiomediastinal silhouette: Normal cardiomediastinal silhouette. Other: IMPRESSION: No acute radiographic abnormality. Engineering Inspection Assistant: PSCB Transcribe Date/Time: Sep 04 2017 3:24P Dictated by : AMANDA POLK MD This examination was interpreted and the report reviewed and electronically signed by: AMANDA POLK MD on Sep 04 2017 3:24PM EST [id number] PROGRESS Observed: 09/04/2017 Status: COMPLETED Source: [place] 11:26 AM [facility] REPOSITORY HNO ID: [id number] Author: Anabell Larson (RtDrea Suarez Service: (none) Author Type: Assistant Community Manager Type: Progress Notes Filed: 09/04/2017 11:38 AM Note Text: Radiology Service Progress Note PATIENT NAME: Jaylon Sauer DATE OF SERVICE: September 04, 2017 TIME: 11:26 AM PATIENT IDENTITY VERIFICATION COMPLETED USING TWO (2) METHODS: Patient confirmed name verbally and Date of . PATIENT GENDER DATA: Male PATIENT RELEVANT IMPLANT DATA REVIEWED: Not Applicable RADIOLOGY DEPARTMENT: General X-ray: Exam(s) Completed: Chest X-Ray PERIPHERAL IV DATA: Not applicable SIGNED BY: RT Mak September 04, 2017 11:26 AM PROGRESS Observed: 09/04/2017 Status: COMPLETED Source: [place] 11:03 AM [facility] REPOSITORY HNO ID: [id number] Author: Antonina Negrete (Pa-C) Elian Service: (none) Author Type: Physician Make Up Girl Type: Progress Notes Filed: 09/04/2017 6:43 PM Note Text: 62 year old male with c/o URI sx over the last [address], sinus pressure and drip. Last week worse with body aches, sweats and chills. Last few days bronchial: chest tightness, wheezing. Headache at base of neck. Taking tylenol with little improvement. Ear keeps popping when he blows nose. OTC Manasa Matthews Severe cold and Flu at night and daytime formula in day. Not everyday. Feel much better than last week. No hx pneumonia. Has had bronchitis. No allergy or asthma hx. Last HIV viral load not measurable and a1c 5.8% 01/12/17 Current Outpatient Prescriptions: lisinopril (ZESTRIL, PRINIVIL) 20 mg tablet Take 1 tablet by mouth once daily. Disp: 90 tablet Rfl: [address] (PROTONIX) 40 mg tablet Take 1 tablet by mouth daily before breakfast. Take on empty stomach, 1/2 hr before meal. Disp: 90 tablet Rfl: 3 fluticasone (FLONASE) 50 mcg/actuation nasal spray Use 2 Sprays in each nostril once daily. Rinse mouth after use. Disp: 1 Bottle Rfl: 11 Blood Pressure Cuff - Home Use BLOOD PRESSURE CUFF FOR HOME USE. DX: LABILE BLOOD PRESSURE Disp: 1 Each Rfl: 0 COMPOUNDED PRESCRIPTION Blood pressure wrist cuffDx.i10 Disp: 1 Each Rfl: 0 cgqoebblsiug-vbvsrfkmnn-onftuakmwgrty-tenofovir (STRIBILD) 115-962-000-300 mg tablet Take 1 tablet by mouth daily with food. Disp: Rfl: fluticasone (FLONASE) 50 mcg/actuation nasal spray Use 2 Sprays in each nostril once daily. Rinse mouth after use. Disp: 1 Bottle Rfl: 11 Cholecalciferol, Vitamin D3, (VITAMIN D) 1,000 unit cap Take 1,000 Units by mouth once daily. Disp: Rfl: Cetirizine (ZYRTEC) 10 mg cap Take 1 tablet by mouth once daily. Disp: Rfl: No current facility-administered medications for this visit. OBJECTIVE: BP 128/88 Pulse 90 Temp 37.4 ?C (99.3 ?F) (Tympanic) Wt 106.1 kg (234 lb) SpO2 95% BMI 29.25 kg/m2 General appearance: pleasant older man in no acute distress but mild nasal congestion. Respirations: regular, unlabored Color: pink to lips and nailbeds Skin: warm, dry, no unusual rashes or lesions Head: Normocephalic Eyes: sclerae and conjunctivae without injection or exudate, PERRLA, EOMI, corneal light reflex symmetric bilaterally Ears: TM's and ear canals are clear bilaterally with normal landmarks, no swelling or deformity external ear Nose/Sinuses: Nose patent. no turbinate swelling. Active exudate: none. Sinuses novnotender frontal,maxillary. Oropharynx: Lips, mucosa, and tongue free from lesions. Gums without inflammation. Posterior pharynx no injection, no exudate, no tonsillar hypertrophy. Neck: Neck supple, some mild anterior cervical lymphadenopathy; thyroid without mass or tenderness. Chest: normally shaped, equal expansion with breaths. Lungs: Lungs clear to auscultation and percussion. No crackles or wheezes. Heart: RRR without murmur, gallop, or rubs. S1 and S2 normal. CXR pa/lat: no evidence acute disease pending radiology review ASSESSMENT/PLAN: 1. Bronchitis - ICD9: 490, ICD10: J40 Nasal saline, decongestant, cool mist, rest , fluids. No pneumonia on exam or CXR. Mychart or call if fever, worsening sx. Patient declined inhaler. - XR CHEST 2V FRONTAL/LAT - PREDNISONE 20 MG TABLET 2. Essential hypertension - ICD9: 401.9, ICD10: I10 - good control - Continue current medication(s) - Recommended regular aerobic exercise. - Recommend home blood pressure monitoring, to bring results in on next visit - Goal of BP <130/80 3. Prediabetes - ICD9: 790.29, ICD10: R73.03 Improved a1c. Antonina Plummer PA-C CNOV Observed: 09/04/2017 Status: COMPLETED Source: [place] 10:40 AM [facility] REPOSITORY Office Visit (FAMPWS) JAYLON SAUER ([id number]) 1955 M Date Time Provider Department 09/04/17 10:40 AM Antonina PLUMMER) FAMPWS During your visit today, we recorded the following information about you: Temperature Pulse Blood pressure Weight 99.3 degrees 90/minute 128/88 106.1 kg Antonina Plummer PA-C 09/04/2017 6:43 PM Signed 62 year old male with c/o URI sx over the last [address], sinus pressure and drip. Last week worse with body aches, sweats and chills. Last few days bronchial: chest tightness, wheezing. Headache at base of neck. Taking tylenol with little improvement. Ear keeps popping when he blows nose. OTC Manasa Matthews Severe cold and Flu at night and daytime formula in day. Not everyday. Feel much better than last week. No hx pneumonia. Has had bronchitis. No allergy or asthma hx. Last HIV viral load not measurable and a1c 5.8% 01/12/17 Current Outpatient Prescriptions: lisinopril (ZESTRIL, PRINIVIL) 20 mg tablet Take 1 tablet by mouth once daily. Disp: 90 tablet Rfl: [address] (PROTONIX) 40 mg tablet Take 1 tablet by mouth daily before breakfast. Take on empty stomach, 1/2 hr before meal. Disp: 90 tablet Rfl: 3 fluticasone (FLONASE) 50 mcg/actuation nasal spray Use 2 Sprays in each nostril once daily. Rinse mouth after use. Disp: 1 Bottle Rfl: 11 Blood Pressure Cuff - Home Use BLOOD PRESSURE CUFF FOR HOME USE. DX: LABILE BLOOD PRESSURE Disp: 1 Each Rfl: 0 COMPOUNDED PRESCRIPTION Blood pressure wrist cuffDx.i10 Disp: 1 Each Rfl: 0 hnbqbnveydtx-qtkeokppey-dkqwaswgvrrnu-tenofovir (STRIBILD) [phone] mg tablet Take 1 tablet by mouth daily with food. Disp: Rfl: fluticasone (FLONASE) 50 mcg/actuation nasal spray Use 2 Sprays in each nostril once daily. Rinse mouth after use. Disp: 1 Bottle Rfl: 11 Cholecalciferol, Vitamin D3, (VITAMIN D) 1,000 unit cap Take 1,000 Units by mouth once daily. Disp: Rfl: Cetirizine (ZYRTEC) 10 mg cap Take 1 tablet by mouth once daily. Disp: Rfl: No current facility-administered medications for this visit. OBJECTIVE: BP 128/88 Pulse 90 Temp 37.4 ?C (99.3 ?F) (Tympanic) Wt 106.1 kg (234 lb) SpO2 95% BMI 29.25 kg/m2 General appearance: pleasant older man in no acute distress but mild nasal congestion. Respirations: regular, unlabored Color: pink to lips and nailbeds Skin: warm, dry, no unusual rashes or lesions Head: Normocephalic Eyes: sclerae and conjunctivae without injection or exudate, PERRLA, EOMI, corneal light reflex symmetric bilaterally Ears: TM's and ear canals are clear bilaterally with normal landmarks, no swelling or deformity external ear Nose/Sinuses: Nose patent. no turbinate swelling. Active exudate: none. Sinuses novnotender frontal,maxillary. Oropharynx: Lips, mucosa, and tongue free from lesions. Gums without inflammation. Posterior pharynx no injection, no exudate, no tonsillar hypertrophy. Neck: Neck supple, some mild anterior cervical lymphadenopathy; thyroid without mass or tenderness. Chest: normally shaped, equal expansion with breaths. Lungs: Lungs clear to auscultation and percussion. No crackles or wheezes. Heart: RRR without murmur, gallop, or rubs. S1 and S2 normal. CXR pa/lat: no evidence acute disease pending radiology review ASSESSMENT/PLAN: 1. Bronchitis - ICD9: 490, ICD10: J40 Nasal saline, decongestant, cool mist, rest , fluids. No pneumonia on exam or CXR. Mychart or call if fever, worsening sx. Patient declined inhaler. - XR CHEST 2V FRONTAL/LAT - PREDNISONE 20 MG TABLET 2. Essential hypertension - ICD9: 401.9, ICD10: I10 - good control - Continue current medication(s) - Recommended regular aerobic exercise. - Recommend home blood pressure monitoring, to bring results in on next visit - Goal of BP ANDlt;130/80 3. Prediabetes - ICD9: 790.29, ICD10: R73.03 Improved a1c. MANJINDER Lozano PA-C 09/04/2017 12:13 PM Signed Acute Bronchitis What is acute bronchitis? Acute bronchitis is an infection of the bronchial (say: ?ghcvl-bsj-bwq?) tree. The bronchial tree is made up of the tubes that carry air into your lungs. When these tubes get infected, they swell and mucus (thick fluid) forms inside them. This makes it hard for you to breathe. You may cough up mucus and wheeze (make a whistling sound when you breathe). What causes acute bronchitis? Acute bronchitis is almost always caused by viruses that attack the lining of the bronchial tree and cause infection. As your body fights back against these viruses, more swelling occurs and more mucus is made. It takes time for your body to kill the viruses and heal the damage to your bronchial tubes. In most cases, the same viruses that cause colds cause acute bronchitis. Research has shown that bacterial infection is a much less common cause of bronchitis than we used to think. Very rarely, an infection caused by a fungus can cause acute bronchitis. How do people get acute bronchitis? The viruses that cause acute bronchitis are sprayed into the air or onto people?s hands when they cough. You can get acute bronchitis if you breathe in these viruses. You can also get it if you touch a hand that is coated with the viruses. If you smoke or are around damaging fumes (such as those in certain kinds of factories), you are more likely to get acute bronchitis and to have it longer. This is because your bronchial tree is already damaged. How is acute bronchitis treated? Most cases of acute bronchitis will go away on their own after a few days or a week. It's a good idea to get plenty of rest, drink lots of noncaffeinated fluids (for example, water and fruit juices) and increase the humidity in your environment. Because acute bronchitis is usually caused by viruses, antibiotics (medicines that kill bacteria) usually do not help. Even if you cough up mucus that is colored or thick, antibiotics probably won?t help you get better any faster. If you smoke, you should cut down on the number of cigarettes you smoke, or stop smoking altogether. This will help your bronchial tree heal faster. For some people with acute bronchitis, doctors prescribe medicines that are usually used to treat asthma. These medicines can help open the bronchial tubes and clear out mucus. They are usually given with an inhaler. An inhaler sprays the medicine right into the bronchial tree. Your doctor will decide if this treatment is right for you. How long will the cough from acute bronchitis last? You should call your doctor if: You continue to wheeze and cough for more than 2 weeks, especially at night or when you are active. You continue to cough for more than 2 weeks and sometimes have a bad-tasting fluid come up into your mouth. You have a cough, you feel very sick and weak, and you have a high fever that doesn?t go down. You cough up blood. You have trouble breathing when you lie down. Your feet swell. Sometimes the cough from acute bronchitis lasts for several weeks or months. Usually this happens because the bronchial tree is taking a long time to heal. However, a cough that doesn?t go away may be a sign of another problem, like asthma or pneumonia. How can I keep from getting acute bronchitis again? One of the best ways to keep from getting acute bronchitis is to wash your hands often to get rid of any viruses. If you smoke, the best defense against acute bronchitis is to quit. Smoking damages your bronchial tree and makes it easier for viruses to cause infection. Smoking also slows down the healing, so it takes longer for you to get well. Reviewed/Updated: 08/17 Created: 12/10 This handout provides a general overview on this topic and may not apply to everyone. To find out if this handout applies to you and to get more information on this subject, talk to your family doctor. Copyright ? [id number] [place] [employer] Permission is granted to print and photocopy this material for nonprofit educational uses. Written permission is required for all other uses, including electronic uses. Prednisone is a potent antiinflammatory to help with wheezing and tightness in your chest. If you change your mind and need the inhaler just call. Please give me a mychart message on progress in the next 3-4 days. If fever or worse: please mychart or call. Referring Provider: SELF [200] Allergies As of Date: 09/04/2017 Noted Allergy Reaction BACTRIM (SULFAMETHOXAZOLE) 01/19/2011 2 - Rash DAPSONE 02/07/2011 2 - Rash Date Reviewed: 09/04/2017 Reviewed by: Antonina Negrete (Pa-C) Elian - Fully Assessed Reason for Visit: Chest Congestion [236] Cmt: x 12 days - coughing at night - wheezing - little SOB - left ear keeps popping - taking Tylenol , Alk plus night time and day time Primary Visit Diagnosis:Bronchitis [J40] Other Visit Diagnoses:Essential hypertension [I10] Prediabetes [R73.03] Order(s):XR CHEST 2V FRONTAL/LAT [4130033] Order #: [id number] FUTURE predniSONE (DELTASONE) 20 mg tabletTake 2 tablets by mouth once daily for 5 days.Disp: 10 tabletRfl: 0 Prescriptions as of 09/04/2017 Sig: LISINOPRIL 20 MG TABLET Take 1 tablet by mouth once d* PANTOPRAZOLE 40 MG TABLET,DEL* Take 1 tablet by mouth daily * FLUTICASONE 50 MCG/ACTUATION * Use 2 Sprays in each nostril * COMPOUNDED PRESCRIPTION BLOOD PRESSURE CUFF FOR HOME * COMPOUNDED PRESCRIPTION Blood pressure wrist cuff Dx* ELVITEG 150 MG-COB 150 MG-EMT* Take 1 tablet by mouth daily * FLUTICASONE 50 MCG/ACTUATION * Use 2 Sprays in each nostril * CHOLECALCIFEROL (VITAMIN D3) * Take 1,000 Units by mouth onc* CETIRIZINE 10 MG CAPSULE Take 1 tablet by mouth once d* PREDNISONE 20 MG TABLET Take 2 tablets by mouth once * Problem List As Of Date 09/04/2017 Noted Resolved PHN (postherpetic neuralgia) [B02.29] INVALID FOR*06/16/2014 HTN (hypertension) [I10] INVALID FOR* Generalized headaches [R51] INVALID FOR*06/16/2014 Occipital neuralgia [M54.81] INVALID FOR*06/16/2014 Human immunodeficiency virus (HIV) disease (HCC*INVALID FOR* More... Hyperlipidemia [E78.5] INVALID FOR* Seasonal rhinitis [J30.2] INVALID FOR* Vitamin D deficiency [E55.9] INVALID FOR* Tobacco use disorder [F17.200] INVALID FOR*11/09/2016 Other instructions from your clinician: Acute Bronchitis What is acute bronchitis? Acute bronchitis is an infection of the bronchial (say: ?adwfv-yrh-omj?) tree. The bronchial tree is made up of the tubes that carry air into your lungs. When these tubes get infected, they swell and mucus (thick fluid) forms inside them. This makes it hard for you to breathe. You may cough up mucus and wheeze (make a whistling sound when you breathe). What causes acute bronchitis? Acute bronchitis is almost always caused by viruses that attack the lining of the bronchial tree and cause infection. As your body fights back against these viruses, more swelling occurs and more mucus is made. It takes time for your body to kill the viruses and heal the damage to your bronchial tubes. In most cases, the same viruses that cause colds cause acute bronchitis. Research has shown that bacterial infection is a much less common cause of bronchitis than we used to think. Very rarely, an infection caused by a fungus can cause acute bronchitis. How do people get acute bronchitis? The viruses that cause acute bronchitis are sprayed into the air or onto people?s hands when they cough. You can get acute bronchitis if you breathe in these viruses. You can also get it if you touch a hand that is coated with the viruses. If you smoke or are around damaging fumes (such as those in certain kinds of factories), you are more likely to get acute bronchitis and to have it longer. This is because your bronchial tree is already damaged. How is acute bronchitis treated? Most cases of acute bronchitis will go away on their own after a few days or a week. It's a good idea to get plenty of rest, drink lots of noncaffeinated fluids (for example, water and fruit juices) and increase the humidity in your environment. Because acute bronchitis is usually caused by viruses, antibiotics (medicines that kill bacteria) usually do not help. Even if you cough up mucus that is colored or thick, antibiotics probably won?t help you get better any faster. If you smoke, you should cut down on the number of cigarettes you smoke, or stop smoking altogether. This will help your bronchial tree heal faster. For some people with acute bronchitis, doctors prescribe medicines that are usually used to treat asthma. These medicines can help open the bronchial tubes and clear out mucus. They are usually given with an inhaler. An inhaler sprays the medicine right into the bronchial tree. Your doctor will decide if this treatment is right for you. How long will the cough from acute bronchitis last? You should call your doctor if: You continue to wheeze and cough for more than 2 weeks, especially at night or when you are active. You continue to cough for more than 2 weeks and sometimes have a bad-tasting fluid come up into your mouth. You have a cough, you feel very sick and weak, and you have a high fever that doesn?t go down. You cough up blood. You have trouble breathing when you lie down. Your feet swell. Sometimes the cough from acute bronchitis lasts for several weeks or months. Usually this happens because the bronchial tree is taking a long time to heal. However, a cough that doesn?t go away may be a sign of another problem, like asthma or pneumonia. How can I keep from getting acute bronchitis again? One of the best ways to keep from getting acute bronchitis is to wash your hands often to get rid of any viruses. If you smoke, the best defense against acute bronchitis is to quit. Smoking damages your bronchial tree and makes it easier for viruses to cause infection. Smoking also slows down the healing, so it takes longer for you to get well. Reviewed/Updated: 08/17 Created: 12/10 This handout provides a general overview on this topic and may not apply to everyone. To find out if this handout applies to you and to get more information on this subject, talk to your family doctor. Copyright ? [id number] [place] [employer] Permission is granted to print and photocopy this material for nonprofit educational uses. Written permission is required for all other uses, including electronic uses. Prednisone is a potent antiinflammatory to help with wheezing and tightness in your chest. If you change your mind and need the inhaler just call. Please give me a PsyQic message on progress in the next 3-4 days. If fever or worse: please mychart or call. Prescriptions ordered this encounter Disp Refills Start End PREDNISONE 20 MG TABLET 10 t* 0 09/04/2017 09/09/2017 Route: ORAL Sig: Take 2 tablets by mouth once daily for 5 days. Disposition: Return if symptoms worsen or fail to improve. Follow-up and Disposition History Recorded Encounter Status:Closed by Antonina PLUMMER PA-C on 09/04/17 ALLERGIES ALLERGIES DATE TYPE / NAME / CODE REACTION SEVERITY SOURCE CODE 02/02/2016 Drug sulfamethoxazole/F0060 Rash Unknown Salty Allergy/41 33324(RXNORM) [facility] [id number]([facility]) Repository 02/02/2016 Drug trimethoprim/[id number] Rash Unknown Salty Allergy/41 3(RXNORM) [facility] [id number]([facility]) Repository 02/02/2016 Drug dapsone/[id number](RXN Rash Unknown Salty Allergy/41 ORM) [facility] [id number]([facility]) Repository 02/07/2011 DRUG DAPSONE RASH [address] [id number]([facility]) Repository 01/19/2011 DRUG SULFAMETHOXAZOLE RASH [address] [id number]([facility]) Repository ENCOUNTERS ENCOUNTERS ADMIT/DISCHARGE ACCOUNT ADMITTING ENCOUNTER LOCATION SOURCE NUMBER CLASS 07/12/2018 [id number] General acute hospital ing:LAB Repository 11/24/2017/11/26/19 [id number] Ambulatory [address] [place] Repository 11/11/2017/11/12/19 [id number] Ambulatory [address] Repository 11/11/2017/11/12/19 [id number] Ambulatory [address] Repository 09/04/2017/09/04/19 [id number] Ambulatory [address] [place] Repository 09/04/2017/09/04/19 [id number] Ambulatory [address] Repository PAYERS PAYERS ENCOUNTER GUARANTOR PAYER SUBSCRIBER SOURCE 07/12/2018 LISA [id number] [facility] [id number] [address]Gdc: (201) [id number] Repository [phone] () Date:[id number] [facility] [address] [place] [address]RA: 07/12/2018 Secondary NOT GIVENUNK [place] Insurance:[employer]Y [facility] Number: Effective Repository Date:2018-07-12
== END ==
PROVIDERS: Family Provider Family Medicine; PCP Family Medicine; Referring Provider Internal Medicine Infectious Disease; Visit Provider Internal Medicine Infectious Disease
DX: B20 Human immunodeficiency virus [HIV] disease (principal)
CPT/HCPCS: 36415; 80048; 80061; 80076; 81001; 85027; 86361; 86592; 86708; 86803; 87340; 87491; 87536; 87661

== ENCOUNTER → 2019-01-20 08:48 | Outpatient (CLI) | payer OTHER, SELFPAY ==
[2016-02-03 11:51] VITALS: BMI 27.0
[2019-01-20 10:07] LABS: Hematocrit 44.9 % (40-54); Mean Corp Hgb Conc 33.4 g/gl (32-36); Mean Corpuscular Hgb 29.7 pg (27.0-32.0); Mean Corpuscular Volume 88.9 fL (80-94); Mean Platelet Vol. 9.5 fl (6.2-12.0); Platelet Count 206 K/mm3 (150-450); RBC Distribution Width SD 44.8 fl (35.1-43.9); Red Blood Count 5.05 M/mm3 (4.6-6.2); White Blood Count 6.9 K/mm3 (4.4-11.0)
[2019-01-20 10:08] LABS: Scan Indicated on CBC? Y/N NO
[2019-01-20 10:55] LABS: AST(SGOT) 18 U/L (15-37); Alanine Aminotransfer ALT/SGPT 28 U/L (16-61); Albumin, Serum 3.6 g/dL (3.2-5.0); Alkaline Phosphatase 89 U/L (45-117); Anion Gap 6 (5-15); BUN 13 mg/dL (7-18); BUN/Creat Ratio 14.6 RATIO (10-20); Bilirubin, Direct 0.09 mg/dL (0.00-0.30); Calcium,Total 8.9 mg/dL (8.5-10.1); Chloride 107 mmol/L (98-107); Creatinine, Serum 0.89 mg/dL (0.70-1.30); EST Glomerular Filtration Rate 92 mL/min (>60); Est Glom Filt Rate - Afr Amer 111 mL/min (>60); Globulin 3.8 g/dL (2.2-4.2); Glucose 112 mg/dL (74-106); Potassium 3.9 mmol/L (3.5-5.1); Protein, Total 7.4 g/dL (6.4-8.2); Sodium Level 137 mmol/L (136-145)
[2019-01-21 12:06] LABS: Absolute CD4 Helper 510 /uL (359-1519); Basophils (Absolute) 0 x10E3/uL (0.0-0.2); Eosinophils 7 % (Not Estab.); Eosinophils (Absolute) 0.5 x10E3/uL (0.0-0.4); Hematocrit 44.7 % (37.5-51.0); Hemoglobin 14.5 g/dL (13.0-17.7); Immature Granulocytes 0 % (Not Estab.); Immature Granulocytes Absolute 0 x10E3/uL (0.0-0.1); Lymphs 27 % (Not Estab.); MCH 29.7 pg (26.6-33.0); MCHC 32.4 g/dL (31.5-35.7); MCV 92 fL (79-97); Monocytes 8 % (Not Estab.); Monocytes (Absolute) 0.6 x10E3/uL (0.1-0.9); Neutrophils 58 % (Not Estab.); Neutrophils (Absolute) 4.2 x10E3/uL (1.4-7.0); Percent % CD4 Pos. Lymph. 25.5 % (30.8-58.5); Platelets 219 x10E3/uL (150-450); RBC Count 4.88 x10E6/uL (4.14-5.80); RDW 14.3 % (12.3-15.4); WBC Count 7.3 x10E3/uL (3.4-10.8)
[2019-01-21 12:19] LABS: Hep B Surface Antibodies Reactive (.)
[2019-01-23 11:17] LABS: HIV-1 RNA by PCR, Quant. < 20 copies/mL (.)
== END ==
PROVIDERS: Family Provider Family Medicine; PCP Family Medicine; Referring Provider Internal Medicine Infectious Disease; Visit Provider Internal Medicine Infectious Disease
DX: B20 Human immunodeficiency virus [HIV] disease (principal)
CPT/HCPCS: 36415; 80048; 80076; 85027; 86361; 86706; 87536

== ENCOUNTER → 2019-08-18 13:11 | Outpatient (CLI) | payer OTHER, SELFPAY ==
[2019-08-18 13:38] LABS: Hematocrit 45.9 % (40-54); Hemoglobin 15.4 g/dL (13.0-16.5); Mean Corp Hgb Conc 33.6 g/dL (32-36); Mean Corpuscular Hgb 30.2 pg (27.0-32.0); Mean Platelet Vol. 9.1 fl (6.2-12.0); Platelet Count 184 K/mm3 (150-450); RBC Distribution Width CV 13.2 % (11.6-14.6); RBC Distribution Width SD 43.6 fl (35.1-43.9); White Blood Count 7.7 K/mm3 (4.4-11.0)
[2019-08-18 14:10] LABS: AST(SGOT) 18 U/L (15-37); Alanine Aminotransfer ALT/SGPT 34 U/L (16-61); Albumin, Serum 3.7 g/dL (3.2-5.0); Alkaline Phosphatase 88 U/L (45-117); BUN 14 mg/dL (7-18); BUN/Creat Ratio 15.7 RATIO (10-20); Chloride 109 mmol/L (98-107); Creatinine, Serum 0.89 mg/dL (0.70-1.30); EST Glomerular Filtration Rate 92 mL/min (>60); Est Glom Filt Rate - Afr Amer 111 mL/min (>60); Globulin 3.8 g/dL (2.2-4.2); Glucose 111 mg/dL (74-106); Potassium 3.9 mmol/L (3.5-5.1); Protein, Total 7.5 g/dL (6.4-8.2); Sodium Level 137 mmol/L (136-145)
[2019-08-18 14:11] LABS: Anion Gap 6 (5-15)
[2019-08-18 14:14] LABS: Hepatitis B Surface Antibody Reactive
[2019-08-19 16:07] LABS: Absolute CD4 Helper 444 /uL (359-1519); Basophils (Absolute) 0 x10E3/uL (0.0-0.2); Eosinophils 3 % (Not Estab.); Eosinophils (Absolute) 0.2 x10E3/uL (0.0-0.4); Hematocrit 44.8 % (37.5-51.0); Hemoglobin 15.5 g/dL (13.0-17.7); Immature Granulocytes 1 % (Not Estab.); Lymphs 21 % (Not Estab.); Lymphs (Absolute) 1.5 x10E3/uL (0.7-3.1); MCH 30.8 pg (26.6-33.0); MCHC 34.6 g/dL (31.5-35.7); MCV 89 fL (79-97); Monocytes 10 % (Not Estab.); Monocytes (Absolute) 0.7 x10E3/uL (0.1-0.9); Neutrophils 64 % (Not Estab.); Percent % CD4 Pos. Lymph. 29.6 % (30.8-58.5); Platelets 203 x10E3/uL (150-450); RBC Count 5.04 x10E6/uL (4.14-5.80); WBC Count 7.5 x10E3/uL (3.4-10.8)
[2019-08-19 17:55] LABS: Immature Granulocytes Absolute 0 x10E3/uL (0.0-0.1); RDW 14.3 % (11.6-15.4)
[2019-08-27 16:07] LABS: HIV-1 RNA by PCR, Quant. < 20 copies/mL (.)
== END ==
LOC: LAB.FUTURE 13:15 → LAB 13:17
PROVIDERS: Family Provider Family Medicine; PCP Family Medicine; Referring Provider Internal Medicine Infectious Disease; Visit Provider Internal Medicine Infectious Disease
DX: B20 Human immunodeficiency virus [HIV] disease (principal)
CPT/HCPCS: 36415; 80048; 80076; 85027; 86361; 86706; 87536

== ENCOUNTER → 2020-03-09 14:48 | Outpatient (CLI) | payer OTHER, SELFPAY ==
[2020-03-09 15:15] LABS: Hematocrit 43.9 % (40-54); Hemoglobin 14.7 g/dL (13.0-16.5); Mean Corp Hgb Conc 33.5 g/dL (32-36); Mean Corpuscular Hgb 30.8 pg (27.0-32.0); Mean Corpuscular Volume 91.8 fL (80-94); Platelet Count 228 K/mm3 (150-450); RBC Distribution Width CV 12.6 % (11.6-14.6); RBC Distribution Width SD 41.9 fl (35.1-43.9); Red Blood Count 4.78 M/mm3 (4.6-6.2); White Blood Count 7.1 K/mm3 (4.4-11.0)
[2020-03-09 15:37] LABS: Anion Gap 5 (5-15); BUN 13 mg/dL (7-18); BUN/Creat Ratio 13.9 RATIO (10-20); Calcium,Total 8.9 mg/dL (8.5-10.1); Chloride 109 mmol/L (98-107); Creatinine, Serum 0.94 mg/dL (0.70-1.30); EST Glomerular Filtration Rate 87 mL/min (>60); Est Glom Filt Rate - Afr Amer 105 mL/min (>60); Glucose 97 mg/dL (74-106); Potassium 4.2 mmol/L (3.5-5.1); Sodium Level 139 mmol/L (136-145)
[2020-03-11 20:07] LABS: Absolute CD4 Helper 673 /uL (359-1519); Basophils (Absolute) 0.1 x10E3/uL (0.0-0.2); Eosinophils 5 % (Not Estab.); Eosinophils (Absolute) 0.3 x10E3/uL (0.0-0.4); Immature Granulocytes 0 % (Not Estab.); Lymphs 31 % (Not Estab.); Lymphs (Absolute) 2.2 x10E3/uL (0.7-3.1); MCH 30.7 pg (26.6-33.0); MCHC 32.6 g/dL (31.5-35.7); MCV 94 fL (79-97); Monocytes 8 % (Not Estab.); Monocytes (Absolute) 0.6 x10E3/uL (0.1-0.9); Neutrophils 55 % (Not Estab.); Neutrophils (Absolute) 3.8 x10E3/uL (1.4-7.0); Percent % CD4 Pos. Lymph. 30.6 % (30.8-58.5); Platelets 251 x10E3/uL (150-450); RBC Count 4.89 x10E6/uL (4.14-5.80); RDW 13.3 % (11.6-15.4); WBC Count 6.9 x10E3/uL (3.4-10.8)
[2020-03-11 21:05] LABS: Immature Granulocytes Absolute 0 x10E3/uL (0.0-0.1)
[2020-03-14 04:41] LABS: HIV-1 RNA by PCR, Quant. 20 copies/mL (.); LOG10 HIV-1 RNA 1.301 (.)
== END ==
PROVIDERS: PCP Family Medicine; Referring Provider Internal Medicine Infectious Disease; Visit Provider Internal Medicine Infectious Disease
DX: B20 Human immunodeficiency virus [HIV] disease (principal)
CPT/HCPCS: 36415; 80048; 85027; 86361; 87536

== ENCOUNTER → 2020-09-21 09:22 | Outpatient (CLI) | payer OTHER, SELFPAY ==
[2016-02-03 11:51] VITALS: BMI 27.0
[2020-09-21 10:07] LABS: Hematocrit 47.1 % (40-54); Hemoglobin 14.9 g/dL (13.0-16.5); Mean Corp Hgb Conc 31.6 g/dL (32-36); Mean Corpuscular Hgb 30.5 pg (27.0-32.0); Mean Corpuscular Volume 96.5 fL (80-94); Mean Platelet Vol. 9.8 fl (6.2-12.0); Platelet Count 202 K/mm3 (150-450); RBC Distribution Width CV 12.3 % (11.6-14.6); RBC Distribution Width SD 43.9 fl (35.1-43.9); Red Blood Count 4.88 M/mm3 (4.6-6.2)
[2020-09-21 10:48] LABS: Anion Gap 6 (5-15); BUN 8 mg/dL (7-18); Calcium,Total 9.2 mg/dL (8.5-10.1); Chloride 107 mmol/L (98-107); Cholesterol 231 mg/dL (200); Creatinine, Serum 0.89 mg/dL (0.70-1.30); EST Glomerular Filtration Rate 92 mL/min (>60); Est Glom Filt Rate - Afr Amer 111 mL/min (>60); Glucose 130 mg/dL (74-106); High Density Lipoprotein 39 mg/dL; Potassium 4.2 mmol/L (3.5-5.1); Sodium Level 136 mmol/L (136-145); Triglycerides 153 mg/dL; Very Low Density Lipoprotein 31 mg/dL (5-40)
[2020-09-22 01:42] LABS: Rapid Plasmin Reagin (RPR) NONREACTIVE (NONREACTIVE)
[2020-09-22 20:08] LABS: Absolute CD4 Helper 529 /uL (359-1519); Basophils (Absolute) 0.1 x10E3/uL (0.0-0.2); Eosinophils 6 % (Not Estab.); Eosinophils (Absolute) 0.4 x10E3/uL (0.0-0.4); Hematocrit 44.5 % (37.5-51.0); Hemoglobin 14.7 g/dL (13.0-17.7); Immature Granulocytes 1 % (Not Estab.); Lymphs 29 % (Not Estab.); Lymphs (Absolute) 2.1 x10E3/uL (0.7-3.1); MCH 30.2 pg (26.6-33.0); MCV 92 fL (79-97); Monocytes 9 % (Not Estab.); Monocytes (Absolute) 0.6 x10E3/uL (0.1-0.9); Neutrophils 54 % (Not Estab.); Neutrophils (Absolute) 3.9 x10E3/uL (1.4-7.0); Percent % CD4 Pos. Lymph. 25.2 % (30.8-58.5); Platelets 242 x10E3/uL (150-450); RBC Count 4.86 x10E6/uL (4.14-5.80); WBC Count 7.2 x10E3/uL (3.4-10.8)
[2020-09-23 01:29] LABS: Immature Granulocytes Absolute 0.1 x10E3/uL (0.0-0.1)
[2020-09-23 12:31] LABS: HIV-1 RNA by PCR, Quant. < 20 copies/mL (.)
== END ==
PROVIDERS: PCP Family Medicine; Referring Provider Internal Medicine Infectious Disease; Visit Provider Internal Medicine Infectious Disease
DX: B20 Human immunodeficiency virus [HIV] disease (principal)
CPT/HCPCS: 36415; 80048; 80061; 85027; 86361; 86592; 87536

== ENCOUNTER → 2021-04-29 07:14 | Outpatient (CLI) | payer OTHER, SELFPAY ==
[2021-04-29 07:56] LABS: Hematocrit 44.8 % (40-54); Hemoglobin 14.6 g/dL (13.0-16.5); Mean Corp Hgb Conc 32.6 g/dL (32-36); Mean Corpuscular Hgb 30.9 pg (27.0-32.0); Mean Corpuscular Volume 94.7 fL (80-94); Mean Platelet Vol. 9.1 fl (6.2-12.0); Platelet Count 248 K/mm3 (150-450); RBC Distribution Width CV 13.2 % (11.6-14.6); RBC Distribution Width SD 46.9 fl (35.1-43.9); Red Blood Count 4.73 M/mm3 (4.6-6.2); White Blood Count 6.6 K/mm3 (4.4-11.0)
[2021-04-29 08:28] LABS: Anion Gap 5 (5-15); BUN 14 mg/dL (7-18); BUN/Creat Ratio 17.7 RATIO (10-20); Calcium,Total 8.8 mg/dL (8.5-10.1); Chloride 109 mmol/L (98-107); Cholesterol 224 mg/dL (200); Creatinine, Serum 0.79 mg/dL (0.70-1.30); EST Glomerular Filtration Rate 105 mL/min (>60); Est Glom Filt Rate - Afr Amer 127 mL/min (>60); Glucose 116 mg/dL (74-106); High Density Lipoprotein 53 mg/dL; Sodium Level 139 mmol/L (136-145); Triglycerides 85 mg/dL; Very Low Density Lipoprotein 17 mg/dL (5-40)
[2021-04-30 14:08] LABS: Absolute CD4 Helper 538 /uL (359-1519); Basophils (Absolute) 0.1 x10E3/uL (0.0-0.2); Eosinophils 7 % (Not Estab.); Eosinophils (Absolute) 0.5 x10E3/uL (0.0-0.4); Hematocrit 44.4 % (37.5-51.0); Hemoglobin 14.3 g/dL (13.0-17.7); Immature Granulocytes 1 % (Not Estab.); Lymphs 28 % (Not Estab.); Lymphs (Absolute) 1.8 x10E3/uL (0.7-3.1); MCH 30.2 pg (26.6-33.0); MCHC 32.2 g/dL (31.5-35.7); MCV 94 fL (79-97); Monocytes 9 % (Not Estab.); Monocytes (Absolute) 0.6 x10E3/uL (0.1-0.9); Neutrophils 54 % (Not Estab.); Neutrophils (Absolute) 3.5 x10E3/uL (1.4-7.0); Percent % CD4 Pos. Lymph. 29.9 % (30.8-58.5); Platelets 250 x10E3/uL (150-450); RBC Count 4.74 x10E6/uL (4.14-5.80); RDW 13.5 % (11.6-15.4); WBC Count 6.4 x10E3/uL (3.4-10.8)
[2021-04-30 14:21] LABS: Immature Granulocytes Absolute 0 x10E3/uL (0.0-0.1)
[2021-05-01 09:17] LABS: Hepatitis B Surface Antibody Reactive; Hepatitis C Antibody Non-Reactive (Nonreactive)
[2021-05-02 20:20] LABS: HIV-1 RNA by PCR, Quant. 70 copies/mL (.); LOG10 HIV-1 RNA 1.845 (.)
== END ==
PROVIDERS: PCP Family Medicine; Referring Provider Internal Medicine Infectious Disease; Visit Provider Internal Medicine Infectious Disease
DX: B20 Human immunodeficiency virus [HIV] disease (principal)
CPT/HCPCS: 36415; 80048; 80061; 85027; 86361; 86706; 86803; 87536

== ENCOUNTER 2021-08-19 16:30 | Emergency (ER) | payer OTHER, SELFPAY ==
[2021-08-19 16:32] VITALS: BP 179/84; PULSE 90; RESP 14; TEMP 36.8; O2SAT 99; BMI 26.2
[2021-08-19 16:44] VITALS: BP 157/94; PULSE 79; RESP 13; O2SAT 100
[2021-08-19 16:56] VITALS: BP 147/86; PULSE 82
--- NOTE | 2021-08-19 17:02 | EX.ED.DYSGE1 ---
HPI History of Present Illness Chief Complaint: Hypertension Detail of Chief Complaint: Acute on chronic hypertension. Informant: patient Onset/Context/Timing Onset: Today and Days Context: Gradual Onset Timing: Intermittent Current Severity: Mild Maximum Severity: Mild Narrative Narrative: 65-year-old male history of hypertension treated with lisinopril. Patient states he is on 20 mg a day which she typically takes in the morning. States the last several days his pressure is a bit more than more elevated as high as 160/99. He really denies many other symptoms. Is not having any chest pain or shortness of breath. He is not having any strokelike symptoms. Said today he took 2 additional doses of his lisinopril for a total of 60 mg. He came in to be evaluated. States his symptoms have resolved Prior similar symptoms: Yes Recent Illness/Hospitalization: No PFSH PFS Medical History High blood pressure HIV disease Home Medications Zyrtec 10 mg PO DAILY PRN 02/02/16 [History Last Taken Unknown] acetaminophen [Tylenol] 650 mg PO DAILY 02/02/16 [History Last Taken 02/02/16] cholecalciferol (vitamin D3) 1,000 unit PO DAILY 02/02/16 [History Last Taken 02/02/16] fluticasone propionate [Flonase Allergy Relief] 2 spray NASAL DAILY PRN PRN 02/02/16 [History Last Taken Unknown] lisinopril 20 mg PO DAILY 02/02/16 [History Last Taken 02/02/16] pantoprazole 40 mg PO BID #45 tablet 02/05/16 [Rx Last Taken Unknown] Allergy/AdvReac Type Severity Reaction Status Date / Time dapsone Allergy Rash Verified 08/19/21 16:43 sulfamethoxazole Allergy Rash Verified 08/19/21 16:43 [From Bactrim] trimethoprim [From Bactrim] Allergy Rash Verified 08/19/21 16:43 Social History Smoking Status: Never smoker ROS ROS ED ROS Narrative Denies recent illness. Review of Systems ROS Unobtainable: Denies due to encephalopathy Constitutional Constitutional ED: Denies difficulty sleeping Eyes Eyes: Denies blindness ENT ENT ED: Denies change in voice or dysphagia Cardiovascular Cardiovascular: Denies abdominal pain Respiratory/Chest Respiratory/Chest: Denies chest tightness or cough Gastrointestinal Gastrointestinal: Denies bloating or dry heaves Genitourinary Genitourinary ED: Denies abdominal discomfort, anuria or burning urination Musculoskeletal Musculoskeletal: Denies back pain Integumentary Denies bleeding lesions or change in hair Neurologic Neurologic: Denies abnormal movements or focal weakness Psychiatric Psychiatric: Denies auditory hallucinations or behavioral changes Endocrine Endocrinology: Denies cold intolerance or deepening of the voice Hematologic/Lymphatic Hematologic/Lymphatic: Denies easy bleeding or lymphadenopathy Allergic/Immunologic Allergic/Immunologic ED: Denies lip swelling or mouth swelling EXAM Physical Exam Narrative Exam Narrative: Six 5-year-old male no acute distress initial blood pressure 179/84. Mom in the room was 147/86. HEENT exam normal. Speech normal. No facial droop. Neck nontender no lymphadenopathy. Lungs clear to auscultation bilaterally. Heart regular rhythm no murmur rate about 80. Abdomen soft nontender normal bowel sounds no peritoneal signs. Moving all 4 extremities. 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 Dorsi plantarflexion intact. Neurologically is awake and alert with no focal motor deficits. NIH score is 0. Fingertip to nose within normal limits. Hallpike maneuver negative. Const Vital Signs: 08/19/21 16:32 08/19/21 16:44 08/19/21 16:45 Temperature 98.2 F Temperature Source Temporal Pulse Rate 90 79 Respiratory Rate 14 13 Respiratory Effort Normal Respiratory Pattern Normal Blood Pressure 179/84 H 157/94 H Blood Pressure Mean 115 115 Pulse Ox 99 100 Oxygen Delivery Method Room Air Room Air 08/19/21 16:56 Temperature Temperature Source Pulse Rate 82 Respiratory Rate Respiratory Effort Respiratory Pattern Blood Pressure 147/86 H Blood Pressure Mean 106 Pulse Ox Oxygen Delivery Method Positive well nourished, well developed, alert, oriented x3, no apparent distress, average body habitus, no limitations and healthy appearing; Negative for cachectic, contractures or unkempt General Appearance ED: well developed; Negative for unkempt, cachectic or contractures Nutritional Appearance: Negative for cachectic HEENT Reports normocephalic, head/scalp atraumatic, external ears normal, external nose normal and moist mucous membranes Eyes PERRL, EOMs intact bilaterally, conjunctivae normal and no scleral icterus General Eye ED: Yes normal appearance of both eyes Neck full ROM, No nuchal rigidity, no lymphadenopathy, supple, no meningeal signs and no JVD Lymph Lymphatic: no lymphadenopathy noted and no lymphedema noted; Negative for lymphedema Chest Wall inspection of chest normal and palpation of chest normal Resp normal respiratory effort, normal air movement, no retractions, no use of accessory muscles, clear to auscultation bilaterally and percussion normal Cardio regular rate, regular rhythm, S1 normal heart sound, S2 normal heart sound, no murmurs, no rub, no gallops, no clicks and no JVD GI normal to inspection, nondistended, normoactive bowel sounds, soft to palpation, non-tender, non-distended and no masses; Negative for hepatosplenomegaly Back/Spine no CVA tenderness, normal ROM, normal to inspection, thoracic and lumbar spine normal to inspection and no thoracic nor lumbar tenderness Extremity normal to inspection, full ROM, no calf tenderness and no pedal edema Neuro oriented x3, moves all extremities, no focal motor deficits and no sensory deficits noted Psych mental status grossly normal, thought process normal, cooperative, affect normal, speech normal and activity/motor behavior normal Appearance: Negative for unkempt Skin no rashes or lesions noted and no wounds MDM MDM MDM Narrative Medical decision making narrative: 65-year-old male with acute on chronic hypertension and took additional doses of his lisinopril today. He will be watching his blood pressure will be watched. His exam is normal vital think he needs any testing. Discharge Plan Triage Chief Complaint: Hypertension ED Provider: Rolo Hugo Dx/Rx/DC Orders Clinical Impression: Hypertension Instructions: ED High Blood Pressure Hypertension Prescriptions: No Action acetaminophen [Tylenol] 325 MG tablet 650 mg PO DAILY RF: 0 lisinopril 20 MG tablet 20 mg PO DAILY RF: 0 fluticasone propionate [Flonase Allergy Relief] 9.9 ML spray,suspension 2 spray NASAL DAILY PRN PRN (Reason: Nasal Congestion) RF: 0 cholecalciferol (vitamin D3) 5,000 UNIT capsule 1,000 unit PO DAILY RF: 0 Zyrtec 10 MG capsule 10 mg PO DAILY PRN (Reason: Nasal Congestion) RF: 0 pantoprazole 40 MG tablet 40 mg PO BID Qty: 45 RF: 0 Primary Care Provider: Benson Healy Referrals: Benson Healy MD [Primary Care Provider] - As soon as possible Activity Restrictions/Additional Instructions: Log your blood pressures twice daily. Call Dr. Healy's office on Saturday and see if they can see you this week. Showing the blood pressures to determine if they need to adjust her blood pressure medication. Unless your blood pressure is running higher than 200/100 you do not need to be seen emergently in the emergency department. You can follow-up with an outpatient with Dr. Healy. Be careful taking additional blood pressure medication because it can drop it too low. Disposition Disposition: Home, Self Care
[2021-08-19 17:04] VITALS: BP 92/67
[2021-08-19 17:19] VITALS: BP 112/74
== END 2021-08-19 17:23 | disposition home or self-care (01) ==
PROVIDERS: Emergency Provider Emergency Medicine; PCP Family Medicine; Visit Provider Emergency Medicine
DX: I10 Essential (primary) hypertension (principal); Z79.899 Other long term (current) drug therapy
CPT/HCPCS: 99282

== ENCOUNTER 2021-11-10 10:57 | Outpatient (CLI) | payer OTHER, SELFPAY ==
[2021-11-10 11:03] LABS: Bacteria 0 SEEN /hpf (None Seen); Mucous, Urine 0 SEEN /hpf (<or=2+); Red Blood Cells-Urine 0 SEEN /hpf (0-5); Squamous Epithelial Cells - UA 0 SEEN /hpf (0-5); White Blood Cells 0 SEEN /hpf (0-5)
[2021-11-10 11:45] LABS: Hematocrit 45.5 % (40-54); Hemoglobin 15.5 g/dL (13.0-16.5); Mean Corp Hgb Conc 34.1 g/dL (32-36); Mean Corpuscular Hgb 31.3 pg (27.0-32.0); Mean Corpuscular Volume 91.7 fL (80-94); Platelet Count 216 K/mm3 (150-450); RBC Distribution Width CV 12.8 % (11.6-14.6); RBC Distribution Width SD 43.1 fl (35.1-43.9); Red Blood Count 4.96 M/mm3 (4.6-6.2); White Blood Count 7.3 K/mm3 (4.4-11.0)
[2021-11-10 11:46] LABS: Color, Urine Yellow (Yellow); Glucose, Dipstick Normal (Normal); Ketone-Dipstick Negative (Negative); Leukocyte Esterase-Dipstick 25 /ul (Negative); Nitrite-Dipstick Negative (Negative); Occult Blood-Urine Negative /ul (Negative); Protein-Dipstick Negative (Negative); Urine Bilirubin Dipstick Negative (Negative); Urine Clarity Clear (Clear); Urine Urobilinogen Normal (Normal)
[2021-11-10 12:17] LABS: Anion Gap 4 (5-15); BUN 16 mg/dL (7-18); Calcium,Total 9.3 mg/dL (8.5-10.1); Chloride 107 mmol/L (98-107); Creatinine, Serum 0.89 mg/dL (0.70-1.30); EST Glomerular Filtration Rate 92 mL/min (>60); Est Glom Filt Rate - Afr Amer 111 mL/min (>60); Glucose 104 mg/dL (74-106); Potassium 4.6 mmol/L (3.5-5.1); Sodium Level 138 mmol/L (136-145)
[2021-11-10 13:11] LABS: Syphilis Antibodies Non-reactive
[2021-11-13 16:08] LABS: Absolute CD4 Helper 412 /uL (359-1519); Basophils (Absolute) 0.1 x10E3/uL (0.0-0.2); Eosinophils 3 % (Not Estab.); Eosinophils (Absolute) 0.2 x10E3/uL (0.0-0.4); Hemoglobin 16.1 g/dL (13.0-17.7); Immature Granulocytes 0 % (Not Estab.); Lymphs 20 % (Not Estab.); Lymphs (Absolute) 1.4 x10E3/uL (0.7-3.1); MCH 31.2 pg (26.6-33.0); MCHC 33.5 g/dL (31.5-35.7); MCV 93 fL (79-97); Monocytes 8 % (Not Estab.); Monocytes (Absolute) 0.6 x10E3/uL (0.1-0.9); Neutrophils 68 % (Not Estab.); Neutrophils (Absolute) 4.8 x10E3/uL (1.4-7.0); Percent % CD4 Pos. Lymph. 29.4 % (30.8-58.5); Platelets 204 x10E3/uL (150-450); RBC Count 5.16 x10E6/uL (4.14-5.80); RDW 13.3 % (11.6-15.4); WBC Count 7.1 x10E3/uL (3.4-10.8)
[2021-11-13 20:30] LABS: Immature Granulocytes Absolute 0 x10E3/uL (0.0-0.1)
[2021-11-24 12:00] LABS: HIV-1 RNA by PCR, Quant. 50 copies/mL (.); LOG10 HIV-1 RNA 1.699 (.)
== END 2021-11-10 23:59 | disposition home or self-care (01) ==
LOC: LAB 10:59
PROVIDERS: PCP Family Medicine; Visit Provider Internal Medicine Infectious Disease
DX: B20 Human immunodeficiency virus [HIV] disease (principal)
CPT/HCPCS: 36415; 80048; 81001; 85027; 86361; 86780; 87536